=== PATIENT | male | born 1945 | race African-American/Black ===

== ENCOUNTER 2016-04-10 15:28 | Inpatient (IN) | payer OTHER ==
[2016-04-10] MEDS ORDERED: NS 1,000 ML IV ONE (16:08)
[2016-04-10] MEDS ORDERED: fentaNYL 100 MCG/2 ML INJ IV ONE (16:08)
[2016-04-10] MEDS ORDERED: ONDANSETRON 4 MG/2 ML VIAL IVP ONE (16:08)
[2016-04-10 16:32] LABS: % IMMATURE GRANULYOCYTES 0.5 % (0.0-1.1); ABSOLUTE IMMATURE GRANULOCYTES 0.07 10^3/uL (0.00-0.10); ADD DIFF? NO; ADD MORPH? NO; ADD SCAN? NO; ATYPICAL LYMPHOCYTE FLAG 10 (0-99); FRAGMENT RBC FLAG 0 (0-99); HEMOGLOBIN 15.8 g/dL (13.7-17.5); LEFT SHIFT FLG 0 (0-99); LIPEMIA HEMOLYSIS FLAG 90 (0-99); MEAN CELL HEMOGLOBIN 33.3 pg (27.9-34.1); MEAN CELL HEMOGLOBIN CONCENTR. 35.1 g/dL (32.4-36.7); MEAN CELL VOLUME 94.9 fL (81.5-99.8); MEAN PLATELET VOLUME 9.8 fL (8.7-11.7); PLATELET CLUMPS FLAG 10 (0-99); PLATELET COUNT 190 10^3/uL (150-400); RED BLOOD CELL COUNT 4.74 10^6/uL (4.40-6.38); RED CELL DISTRIBUTION WIDTH 13.3 % (11.5-15.2)
--- NOTE | 2016-04-10 16:38 | EDPHY ---
H & P Stated Complaint: L knee injury HPI/ROS: CHIEF COMPLAINT: Knee pain, leg pain HISTORY OF PRESENT ILLNESS: Walking out of his home yesterday when he slipped on the ice. He says his knee flexed and the lower leg went into a valgus stress. He noted sudden onset of pain on the distal femur or the proximal knee. It was moderate to severe pain. Unable to bear weight on it. He was unable to come to the emergency department as he did not have a ride. He is laid there home resting and elevating the leg. He has severe pain to the knee at this time. No numbness or tingling distally. No head or neck injury. No chest or back pain. No injury on the ipsilateral hip, ankle or foot. He has not tested he is having movement of any kind. It is too painful to move at all. Improved at rest. No other associated complaints or modifying factors. Has not had anything to eat since last night. The medical problems include chronic hepatitis-C and pancreatitis due to alcoholism. REVIEW OF SYSTEMS: Ten systems reviewed and are negative unless otherwise noted in the HPI EXAMINATION General Appearance: Alert, no distress Head: normocephalic, atraumatic . No bruising or hematoma or depressions no Burns sign. No raccoon eyes Eyes: Pupils equal and round, no conjunctival pallor or injection . No icterus ENT, Mouth: Mucous membranes moist. Uvula midline. No edema. Neck: Normal inspection . Range of motion intact. Respiratory: No dyspnea or retractions. no wheezing rhonchi or crackles.No distress Cardiovascular: Pulses normal throughout. Symmetric DP and PT pulses at 2+. Brisk cap refill Gastrointestinal: No distention . No tenderness. Neurological: A&O, sensory symmetric, strength symmetric Skin: Warm and dry, no rash . No lacerations or abrasions Extremities: significant edema and tenderness to palpation of the left knee. Unable to test range of motion secondary to pain and having artery the x-ray with fracture. Range of motion distal to the knee is intact. Sensory distal to the knee is intact. No evidence of compartment syndrome. Psychiatric: Mood and affect normal DIFFERENTIAL DIAGNOSES: Including but not limited to Fracture dislocation, sprain, strain MDM: 4:10 p.m. mechanical fall with significant fracture to the distal left femur, through the femoral condyles and into the articular surface. He is neurovascular intact distally. Orthopedics has been paged and awaiting their orders at this time. He has been NPO since last night. History significant for hepatitis-C, alcoholism and pancreatitis. 4:38 p.m. I have discussed the case with the on-call orthopedist Dr. Del Rosario. he informed me that he is unable to see the patient approximately 6:00 p.m. due to surgical responsibilities. He said that he will come evaluate the patient as soon as he can but a likely be 6:00 p.m.. They also informed that his plan will likely be to transfer to another facility as he does not perform this particular surgical intervention. The patient is resting comfortably at this time. Will be kept NPO. We obtained laboratory studies AP upright chest x-ray and will monitor until ortho evaluation 5:36 p.m. I have re-evaluated this patient. They remain hemodynamically stable and in no distress. No further complaints at this time. 6:30 p.m. I have re-evaluated this patient. They remain hemodynamically stable and in no distress. No further complaints at this time. Pain is tolerable at this time. We are still awaiting orthopedic consultation. 6:55pm Orthopedics (Dr. Del Rosario) repaged at this time. 7:25 p.m. he has been evaluated by Orthopedics. Dr. Del Rosario has evaluated and discussed with Dr. Nichols. Dr. Nichols has agreed to the procedure outpatient. He feels the patient is stable for discharge home given the nature of the injury. However the patient may be admitted should he be unable to go home. I have discussed this with the patient, and while I would like the patient to be admitted for his safety, the patient has declined. I discussed in detail the risks, benefits and alternatives of doing so. He is willing to assume all these risks. He is alert and oriented and capable of making this decision. On repeat examination at this time, he is neurovascular intact with no evidence of compartment syndrome. His pain is tolerable at this time. He will be discharged home with a straight leg immobilizer, crutches, follow up instructions, pain medication. He is instructed to return to the ER should his pain worsen, should he fall or should he change his mind regarding his comfort at home. 7:35 p.m. After being evaluated by the attending physician Dr. Dominguez, the patient has reconsidered and will consent to admission. He'll be admitted to Orthopedic service for definitive care. Plan for OR tomorrow afternoon or evening. 8:50 p.m. case discussed with orthopedic MICHAEL Leahy. They are requesting medicine consultation. I then contacted the hospitalist, Dr. Thomas will provide consultation. He is requesting an EKG in the emergency department. He be admitted in stable condition for definitive care tomorrow. ED Precautions: Worsening pain. Erythema, edema, cyanosis, pallor, paresthesia or anesthesia. SUPERVISION: Patient was evaluated in conjunction with the supervising physician. Please see their note for details. 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 FROM [place], HEPATITIS C - Social History Smoking Status: Light smoker Constitutional: Initial Vital Signs Temperature (C) 98.6 F 04/10/16 15:30 Heart Rate 132 H 04/10/16 15:30 Respiratory Rate 16 04/10/16 15:30 Blood Pressure 146/100 H 04/10/16 15:30 O2 Sat (%) 98 04/10/16 15:30 O2 Delivery Mode Room Air O2 (L/minute) 2 Allergies/Adverse Reactions: No Known Allergies Allergy (Unverified 05/29/14 08:46) Home Medications: Medication Instructions Recorded Ibuprofen [Motrin (*)] 200 mg PO DAILY PRN 04/10/16 Multivitamins [Multivitamin (*)] 1 each PO DAILY 04/10/16 Medical Decision Making - Data Points Laboratory Results: Laboratory Results 04/10/16 16:25 04/10/16 16:25 04/10/16 04/10/16 19:37 16:25 WBC 13.81 H 10^3/uL (3.80-9.50) RBC 4.74 10^6/uL (4.40-6.38) Hgb 15.8 g/dL (13.7-17.5) Hct 45.0 % (40.0-51.0) MCV 94.9 fL (81.5-99.8) MCH 33.3 pg (27.9-34.1) MCHC 35.1 g/dL (32.4-36.7) RDW 13.3 % (11.5-15.2) Plt Count 190 10^3/uL (150-400) MPV 9.8 fL (8.7-11.7) Neut % (Auto) 66.4 % (39.3-74.2) Lymph % (Auto) 24.8 % (15.0-45.0) [place] % (Auto) 8.0 % (4.5-13.0) Eos % (Auto) 0.0 L % (0.6-7.6) Baso % (Auto) 0.3 % (0.3-1.7) Nucleat RBC Rel Count 0.0 % (0.0-0.2) Absolute Neuts (auto) 9.18 H 10^3/uL (1.70-6.50) Absolute Lymphs (auto) 3.42 H 10^3/uL (1.00-3.00) Absolute Monos (auto) 1.10 H 10^3/uL (0.30-0.80) Absolute Eos (auto) 0.00 L 10^3/uL (0.03-0.40) Absolute Basos (auto) 0.04 10^3/uL (0.02-0.10) Absolute Nucleated RBC 0.00 10^3/uL (0-0.01) Immature Gran % 0.5 % (0.0-1.1) Immature Gran # 0.07 10^3/uL (0.00-0.10) PT 13.4 SEC (12.0-15.0) INR 1.03 (0.83-1.16) APTT 27.7 SEC (23.0-38.0) Sodium 139 mEq/L (134-144) Potassium 3.2 L mEq/L (3.5-5.2) Chloride 101 mEq/L (97-110) Carbon Dioxide 20 L mEq/l (22-31) Anion Gap 18 mEq/L (8-16) BUN 11 mg/dL (7-23) Creatinine 0.9 mg/dL (0.7-1.3) Estimated GFR > 60 Glucose 110 H mg/dL (70-100) Calcium 9.7 mg/dL (8.5-10.4) Total Bilirubin 1.8 H mg/dL (0.1-1.4) Conjugated Bilirubin 0.4 mg/dL (0.0-0.5) Unconjugated Bilirubin 1.4 H mg/dL (0.0-1.1) AST 42 IU/L (17-59) ALT 27 IU/L (21-72) Alkaline Phosphatase 97 IU/L (38-126) Total Protein 8.5 H g/dL (6.3-8.2) Albumin 3.9 g/dL (3.5-5.0) Lipase 31.0 IU/L (23-300) Urine Color YELLOW Urine Appearance CLEAR Urine pH 6.0 (5.0-7.5) Ur Specific [place] 1.008 (1.002-1.030) Urine Protein NEGATIVE (NEGATIVE) Urine Ketones NEGATIVE (NEGATIVE) Urine Blood 2+ H (NEGATIVE) Urine Nitrate NEGATIVE (NEGATIVE) Urine Bilirubin NEGATIVE (NEGATIVE) Urine Urobilinogen NEGATIVE EU (0.2-1.0) Ur Leukocyte Esterase NEGATIVE (NEGATIVE) Urine RBC 15-25 H /hpf (0-3) Urine WBC 1-3 /hpf (0-3) Ur Epithelial Cells NONE SEEN /lpf (NONE-1+) Urine Mucus TRACE /lpf (NONE-1+) Urine Glucose NEGATIVE (NEGATIVE) Patient ABO/Rh A POSITIVE Antibody Screen NEGATIVE Medications Given: Discontinued Medications Fentanyl (Sublimaze) 75 mcg IV EDNOW ONE Stop: 04/10/16 16:09 Last Admin: 04/10/16 16:43 Dose: 75 mcg Sodium Chloride (Ns) 1,000 mls @ 0 mls/hr IV ONCE ONE PRN Reason: Wide Open Stop: 04/10/16 16:09 Last Admin: 04/10/16 16:43 Dose: 1,000 mls Ondansetron HCl (Zofran) 4 mg IVP EDNOW ONE Stop: 04/10/16 16:09 Last Admin: 04/10/16 16:43 Dose: 4 mg Oxycodone/Acetaminophen (Percocet 5/325mg Prepack#4) 1 btl TAKEHOME EDNOW ONE Stop: 04/10/16 19:28 Last Admin: 04/10/16 19:54 Dose: Not Given Departure - Departure Disposition: [facility] Acute Clinical Impression: Chronic hepatitis Femur fracture, left Qualifiers: Qualifier Code: (S72.062A) Displaced articular fracture of head of left femur, initial encounter for closed fracture Condition: Good
[2016-04-10 16:56] LABS: ALANINE AMINOTRANSFERASE 27 IU/L (21-72); ALBUMIN 3.9 g/dL (3.5-5.0); ALKALINE PHOSPHATASE 97 IU/L (38-126); ANION GAP 18 mEq/L (8-16); ASPARTATE AMINOTRANSFERASE 42 IU/L (17-59); BILIRUBIN,TOTAL 1.8 mg/dL (0.1-1.4); BILIRUBIN-CONJUGATED 0.4 mg/dL (0.0-0.5); BILIRUBIN-UNCONJUGATED 1.4 mg/dL (0.0-1.1); CALCIUM 9.7 mg/dL (8.5-10.4); CARBON DIOXIDE 20 mEq/l (22-31); CHLORIDE 101 mEq/L (97-110); CREATININE 0.9 mg/dL (0.7-1.3); GLOMERULAR FILTRATION RATE > 60; GLUCOSE 110 mg/dL (70-100); POTASSIUM 3.2 mEq/L (3.5-5.2); SODIUM 139 mEq/L (134-144); TOTAL PROTEIN 8.5 g/dL (6.3-8.2)
[2016-04-10 17:09] LABS: APTT 27.7 SEC (23.0-38.0); INR 1.03 (0.83-1.16); PROTIME(PATIENT) 13.4 SEC (12.0-15.0)
--- NOTE | 2016-04-10 17:14 | DX ---
Knee 4 or More Views Left History: Trauma. Pain. Findings: An obliquely oriented moderately displaced fracture extends from the medial aspect of the d istal left femur just above the medial femoral condyle inferiorly in vertical orientation to the inte rcondylar space, where step-off is demonstrated. On the lateral radiograph, a horizontal lucency courses through the mid patella, potentially represen ting a nondisplaced fracture. No proximal tibial or fibular fracture identified. Impression: 1. Displaced intercondylar fracture, distal left femur. 2. Equivocal horizontal nondisplaced fracture mid patella.
--- NOTE | 2016-04-10 17:16 | DX ---
Portable AP chest. April 10, 2016At 1632 History: Preoperative evaluation. Comparison Study: May 30, 2014. Findings: Pleural and parenchymal fibrosis is identified in the lung apices bilaterally. Heart size is normal. No infiltrate or pleural effusion. No rib fracture identified. Impression: Biapical pleural and parenchymal fibrosis. No acute abnormality.
[2016-04-10] MEDS ORDERED: OXYCODONE/APAP 5/325MG PREPACK#4 BTL TAKEHOME ONE (19:27)
[2016-04-10 19:48] LABS: COLOR YELLOW; LEUKOCYTE ESTERASE,URINE NEGATIVE (NEGATIVE); NITRITE,URINE NEGATIVE (NEGATIVE)
[2016-04-10 20:00] LABS: MUCUS TRACE /lpf (NONE-1+); RBC,URINE 15-25 /hpf (0-3)
[2016-04-10] MEDS ORDERED: ONDANSETRON 4 MG/2 ML VIAL IVP PRN (20:53)
--- NOTE | 2016-04-10 21:09 | CPEKG ---
Heart Rate: 90 RR Interval: 667 P-R Interval: 144 QRSD Interval: 118 QT Interval: 380 QTC Interval: 465 P [place]: 74 QRS [place]: -70 T Wave [place]: 50 EKG Severity - ABNORMAL ECG - EKG Impression: SINUS RHYTHM EKG Impression: MULTIPLE ATRIAL PREMATURE COMPLEXES EKG Impression: INCOMPLETE RBBB AND LAFB Electronically Signed By: Tomasz Best 12-Apr-2016 19:34:24
[2016-04-10] MEDS ORDERED: HYDROmorphONE/DILAUDID 1 MG/ML SYR IVP ONE (21:19)
[2016-04-10] MEDS: OXYCODONE/APAP 5/325 TAB PO PRN (21:39)
[2016-04-10] MEDS: GABAPENTIN 100 MG CAP PO SCH (21:40)
--- NOTE | 2016-04-10 22:02 | CT ---
CT of the left knee, without contrast. History: Trauma. Pain. Technique: Volumetric axial CT images of the left knee are obtained, and reformatted in sagittal and coronal planes. Dose reduction techniques were utilized. Findings: There is a vertically oriented moderately displaced fracture coursing through the distal le ft femur, extending from just above the medial femoral condyle to cross the midline and enter the kne e joint just lateral to the intercondylar notch. Fracture fragments are by 15 mm. Associate d hemarthrosis. Additionally, there is a horizontally oriented incomplete fracture through the latera l aspect of the patella, without displacement. No other fracture identified. Impression: 1. Moderately displaced vertical fracture through the distal left femur. 2. Horizontal incomplete fracture through the lateral aspect of the patella.
--- NOTE | 2016-04-10 22:54 | GCON ---
[f rep ] CONSULTATION [facility] MEDICINE CONSULTATION DATE OF CONSULTATION: 04/10/2016 HISTORY OF PRESENT ILLNESS: The patient is a pleasant 70-year-old gentleman with a history of pancre atitis and untreated hepatitis C, who presents with a fall that occurred yesterday. He slipped on ic e and had a sudden onset of pain in the distal femur/proximal knee. Felsrmwu-ey-lieued pain. He is unable to bear weight. He laid home resting his leg yesterday and came to the Emergency Department t judd. He denies antecedent chest pain, shortness of breath, nausea, vomiting, diarrhea. Does have a n episode of a couple of syncopal episodes in the past year for which he did not seek care. He is ab le to achieve greater than 4 mets at baseline without chest symptoms such as shortness of breath or a nginal type symptoms. He denies heart failure symptoms such as PND, orthopnea, or lower extremity edema. He denies recent fevers, chills, cough, nausea, vomiting, diarrhea. He was admitted here with pancreatitis a couple of years ago. He has not had recurrent pancreatitis. He says he has cut down on his alcohol use. The patient complains of neuropathic symptoms in his feet such as feelings of deadness and tingling. He does not have diabetes. REVIEW OF SYSTEMS: A complete 10-point review of systems was conducted and negative, except as noted in the HPI. PAST MEDICAL HISTORY: 1. Pancreatitis. 2. Hepatitis C. 3. Heavy alcohol use which appears to be better. He has no history of withdrawal. 4. Chronic back pain. SOCIAL HISTORY: . Lives alone in an apartment. No tobacco. Marijuana and alcohol daily. FAMILY HISTORY: His father when he was a child of unknown causes. His mother had CHF. ALLERGIES: He has no known drug allergies. MEDICATIONS: None. PHYSICAL EXAM: VITAL SIGNS: Temperature 37.4, blood pressure 146/100, pulse 132, breathing 16 times a minute, 98% on room air. GENERAL: In no acute distress. HEENT: Sclerae are anicteric. Orophar ynx is clear. Mucous membranes are moist. NECK: Supple without lymphadenopathy or JVD. LUNGS: Cl ear to auscultation bilaterally. HEART: S1, S2 without systolic murmur. ABDOMEN: Soft, nontender, nondistended. EXTREMITIES: Lower extremities without edema. His left leg is very tender. LABORATORY STUDIES: EKG interpreted by me shows sinus at 90 with left axis deviation. There is an i ncomplete right bundle branch block and a left anterior fascicular block. There is no prior for comp camson. There are no ischemic changes. Chest x-ray shows no acute cardiopulmonary disease. Knee x-ray shows an intercondylar distal femur fracture. I discussed the case with Thomas Jalloh PA-C in the Emergency Department. ASSESSMENT AND PLAN: This is a 70-year-old gentleman with a femur fracture. 1. Preoperative cardiac evaluation: The patient can achieve greater than 4 mets at baseline without symptoms. He has an abnormal EKG, but it is likely community health representative of underlying conduction disease as opposed to ischemia or prior infarct. At this point in time, it is appropriate to send the patien t to the operating room without further workup or intervention. 2. Abnormal EKG. He has no prior for comparison. Will follow. 3. Neuropathic pain. I will go ahead and start the patient on Neurontin at a low dose of 100 t.i.d. This can be uptitrated during his hospitalization. 4. Pain. He has had some pain medication orders written by Orthopedic Surgery. We will continue th at. I will give him a onetime dose of Dilaudid down here in the Emergency Department as he is still complaining of pain. 5. Prophylaxis. Pharmacologic prophylaxis is indicated. I will not write for it now. However, he is high-risk given his distal femur fracture. I would recommend pharmacologic prophylaxis starting o n postoperative day #1. 6. History of alcohol use. Patient has been hospitalized previously without symptoms of withdrawal. Sounds like he is drinking less. Will follow. Certainly, if he becomes tachycardic and/or hyperte nsive and/or confused, then it would be worth addressing alcohol withdrawal. DISPOSITION: Inpatient status. Thank you for this consultation. [facility] will follow with you. /[id number]/MODL
[2016-04-10] MEDS ORDERED: POTASSIUM Cl (KCl) 20 MEQ in 1/2 NS 1,000 ML IV SCH (23:00)
[2016-04-11] MEDS: OXYCODONE/APAP 5/325 TAB PO PRN (00:50)
[2016-04-11] MEDS: GABAPENTIN 100 MG CAP PO SCH ×3 (09:08→23:32)
[2016-04-11] MEDS: HYDROmorphONE/DILAUDID 1 MG/ML SYR IVP PRN ×2 (09:18→15:53)
--- NOTE | 2016-04-11 14:06 | HOSPPROG ---
Hospitalist Progress Note Assessment/Plan: Patient is a 70-year-old male who had a fall that occurred prior to his admission. He slipped on the ice and had sudden onset of pain in the distal femur/proximal knee area. A knee x-ray was performed which showed a intercondylar distal femur fracture. Today is my 1st encounter with the patient. Chart reviewed. #. Intercondylar distal femur fracture * surgery today * has brace in place #. Abnormal ECG * has no chest pain #. Underweight with a BMI of 17.6 #. Neuropathic pain * started on gabapentin * no c/o pain #. Hx of alcohol use and nicotine dependence * denies use #. DVT prophylaxis: will need lmwh initiated #.Plan: labs in a.m. Subjective: Zi said he isn't have much pain. Objective: Vital Signs Temp Pulse Resp BP Pulse Ox 36.4 C 82 15 121/77 H 98 04/11/16 11:09 04/11/16 11:09 04/11/16 11:09 04/11/16 11:09 04/11/16 11:09 04/10/16 04/11/16 04/12/16 05:59 05:59 05:59 Intake Total 550 Output Total 100 Balance 450 PT 13.4 SEC (12.0-15.0) 04/10/16 16:25 INR 1.03 (0.83-1.16) 04/10/16 16:25 - Physical Exam Constitutional: not in pain, chronically ill appearing, cachectic Eyes: PERRL, anicteric sclera Ears, Nose, Mouth, Throat: hearing normal Cardiovascular: regular rate and rhythym, no murmur, rub, or gallop Respiratory: no respiratory distress Gastrointestinal: normoactive bowel sounds, soft, non-tender abdomen Skin: warm Musculoskeletal: other (left leg in brace) Neurologic: AAOx3 Psychiatric: interacting appropriately ICD10 Worksheet Patient Problems: Problems Problem Status Diagnosed Chronic hepatitis Acute Femur fracture, left Acute Pancreatitis Acute
[2016-04-11] MEDS ORDERED: BISACODYL 10 MG SUPP PR PRN (17:28)
[2016-04-11] MEDS ORDERED: LACTULOSE 20 GM/30 ML UDCUP PO PRN (17:28)
[2016-04-11] MEDS ORDERED: MAGNESIUM HYDROXIDE 30 ML UDCUP PO PRN (17:28)
[2016-04-11] MEDS ORDERED: BUPIVACAINE 0.5% 30 ML SDV ONE (19:08)
[2016-04-11] MEDS ORDERED: MIDAZOLAM 2 MG/2 ML VIAL ONE (19:14)
[2016-04-11] MEDS ORDERED: fentaNYL 100 MCG/2 ML INJ ONE ×3 (19:21→22:15)
[2016-04-11] MEDS ORDERED: PROPOFOL 200 MG/20 ML VIAL ONE ×2 (19:21→20:17)
[2016-04-11] MEDS ORDERED: METOCLOPRAMIDE 10 MG/2 ML VIAL ONE (19:22)
[2016-04-11] MEDS ORDERED: ONDANSETRON 4 MG/2 ML VIAL ONE (19:22)
[2016-04-11] MEDS ORDERED: LIDOCAINE 2% JELLY 5 ML TUBE ONE (19:22)
[2016-04-11] MEDS ORDERED: METOPROLOL TARTRATE 5 MG/5 ML INJ ONE ×2 (20:35→21:23)
--- NOTE | 2016-04-11 20:59 | DX ---
Fluoroscopy: 15.3 seconds, 0.97 mGy, of intraoperative fluoroscopy was utilized by Dr. Nichols for ORIF of the dist al left femur. 2 digital images show a plate and multiple screws transfixing the distal left femur.
[2016-04-11] MEDS ORDERED: hydrALAZINE 20 MG/ML VIAL ONE (21:13)
[2016-04-11] MEDS ORDERED: HYDROmorphONE/DILAUDID 1 MG/ML SYR ONE (21:17)
[2016-04-11] MEDS ORDERED: morphINE PCA 30 MG/30 ML PCA IV PRN (21:17)
[2016-04-11] MEDS ORDERED: NALOXONE HCL 0.4 MG/ML INJ IVP PRN (21:17)
--- NOTE | 2016-04-11 21:27 | POSTOPPROG ---
Post Op Note Date of Operation: 04/11/16 Surgeon: Jostin Nichols Anesthesia: GET(General Endotracheal) Pre-op Diagnosis: L distal femur fracture Post-op Diagnosis: same Procedure: orif l distal femur fx Inf/Abcess present in the surg proc area at time of surgery?: No EBL: Minimal
[2016-04-11] MEDS ORDERED: D5W 1/2 NS W/ 20 KCl/L 1,000 ML IV SCH (21:30)
[2016-04-11] MEDS: SENNOSIDES/DOCUSATE SODIUM TAB PO SCH (23:32)
--- NOTE | 2016-04-12 00:09 | GCON ---
[f rep st] CONSULTATION ORTHOPEDIC CONSULTATION REASON FOR CONSULTATION: Left knee pain. HISTORY OF PRESENT ILLNESS: Patient is a 70-year-old, who sustained a fall while walking on the ice resulting in left knee pain. This happened the day prior to admission. He is having increasing pain with difficulty ambulating secondary to his pain. PAST MEDICAL HISTORY: Unremarkable. MEDICATIONS: He takes no medicine. ALLERGIES: Lists no drug allergies. SOCIAL HISTORY: Positive for cigarette smoking of approximately 3 cigarettes per day. PHYSICAL EXAMINATION: GENERAL: He is alert and oriented x3, in mild distress secondary to his left knee pain. HEAD: Normocephalic. Pupils equal, round, reactive to light. NECK: Supple. No JVD or lymphadenopathy. CHEST: Clear to auscultation. No rhonchi or crackles. HEART: Regular rate and rhythm. No murmurs, gallops. ABDOMEN: Soft, nontender, nondistended. GENITAL, RECTAL, AND BREAST: Exams were deferred. EXTREMITIES: Swelling with probable effusion in his left knee. He had focal tenderness both medially and laterally in his knee. His distal neurovascular exam was intact. IMAGING: Radiographs showed evidence of a medial femoral condyle fracture. ASSESSMENT: Intra-articular distal femur fracture. PLAN: It was recommended the patient undergo operative treatment consisting of open reduction, inter nal fixation. /[id number]/MODL
--- NOTE | 2016-04-12 01:14 | GOP ---
[f rep st] OPERATIVE REPORT DATE OF OPERATION: 04/11/2016 SURGEON: Jostin Nichols MD ANESTHESIA: General. PREOPERATIVE DIAGNOSIS: Intercondylar left distal femur fracture. POSTOPERATIVE DIAGNOSIS: Intercondylar left distal femur fracture. PROCEDURE PERFORMED: 1. Open reduction, internal fixation, left intercondylar distal femur fracture. 2. Intraoperative use of fluoroscopy. FINDINGS: ESTIMATED BLOOD LOSS: Minimal. INDICATIONS: The patient is a 70-year-old who fell on the ice 2 days prior to surgery, resulting in knee pain. Clinically and radiographically, he was noted to have an intercondylar distal femur fract ure. Based on the displaced nature of the injury, it was recommended that operative treatment consis ting of open reduction, internal fixation be pursued. The patient acknowledged he understood the pot ential risks, including but not limited to bleeding, infection, neurovascular damage including loss o f limb or limb function, malunion, nonunion, need for hardware removal, pain or functional limitation s despite operative treatment, and anesthetic risks. He acknowledged he understood the potential ris ks, planned procedure and postoperative plan well, had all questions answered prior to surgery. He g ave his consent for the operative procedure. DESCRIPTION OF PROCEDURE: Patient was brought to the operating room after IV antibiotics were admini stered. He was placed in a supine position where general anesthetic was administered. A tourniquet was placed on his left thigh. His left lower extremity was prepped and draped in standard sterile fa shion. Initial limited lateral approach to the distal femur was utilized to aid in the reduction of the fracture. A medial approach was then utilized. Skin and subcutaneous tissue were sharply incise d. Transmuscular dissection was performed through the vastus medialis, exposing the medial and femor al condyles. The fracture plane was identified. Utilizing a 2-point reduction clamp, both on the fr acture medially and through the lateral incision, the fracture was reduced. A 6-hole semitubular aidee te was malleted flat and contoured to fit the distal femur, under-contouring the plate to allow compr ession at the fracture site. Just proximal to the fracture plane, a 4.5 mm bicortical screw was plac ed in a medial-lateral direction through the plate. A 4.5 mm lag screw and a 6.5 mm screw with 16 mm threads were additionally placed through the plate for the compression of the fracture. A final 4.5 mm bicortical screw was placed in the most proximal hole in the plate. Fluoroscopic views confirmed favorable reduction and hardware placement. Attention was directed towards closure. Deep fascia was closed with 2-0 Vicryl suture in interrupted fashion. Subcutaneous tissue was closed with 3-0 Vicryl suture in interrupted fashion. Skin was closed with skin jeromy. The wounds were dressed with sterile Adaptic, 4 x 4, Kerlix and an Russell wrap. The patient was placed in a knee immobi lizer. The patient was taken to the recovery room, extubated, in stable condition postoperatively. All sponge, needle, and instrument counts were reported as being correct. DRAINS: None. COMPLICATIONS: None. PLAN: The patient will be admitted for overnight observation. He will be weightbearing as tolerated on his operative extremity. /[id number]/MODL
[2016-04-12 05:08] LABS: % IMMATURE GRANULYOCYTES 0.5 % (0.0-1.1); ABSOLUTE IMMATURE GRANULOCYTES 0.07 10^3/uL (0.00-0.10); ADD DIFF? NO; ADD MORPH? NO; ADD SCAN? NO; ATYPICAL LYMPHOCYTE FLAG 10 (0-99); FRAGMENT RBC FLAG 0 (0-99); HEMATOCRIT 36.7 % (40.0-51.0); HEMOGLOBIN 13.1 g/dL (13.7-17.5); LEFT SHIFT FLG 0 (0-99); LIPEMIA HEMOLYSIS FLAG 90 (0-99); MEAN CELL HEMOGLOBIN 34.2 pg (27.9-34.1); MEAN CELL HEMOGLOBIN CONCENTR. 35.7 g/dL (32.4-36.7); MEAN CELL VOLUME 95.8 fL (81.5-99.8); MEAN PLATELET VOLUME 9.8 fL (8.7-11.7); PLATELET CLUMPS FLAG 0 (0-99); PLATELET COUNT 147 10^3/uL (150-400); RED BLOOD CELL COUNT 3.83 10^6/uL (4.40-6.38); RED CELL DISTRIBUTION WIDTH 13.1 % (11.5-15.2)
[2016-04-12 05:22] LABS: ANION GAP 7 mEq/L (8-16); CALCIUM 8.6 mg/dL (8.5-10.4); CARBON DIOXIDE 24 mEq/l (22-31); CHLORIDE 99 mEq/L (97-110); CREATININE 0.7 mg/dL (0.7-1.3); GLOMERULAR FILTRATION RATE > 60; GLUCOSE 105 mg/dL (70-100); SODIUM 130 mEq/L (134-144)
[2016-04-12] MEDS: ENOXAPARIN 40 MG/0.4 ML SYR SC SCH (07:55)
[2016-04-12] MEDS: POLYETHYLENE GLYCOL 3350 17 GM PKT PO SCH (07:57)
[2016-04-12] MEDS: SENNOSIDES/DOCUSATE SODIUM TAB PO SCH ×2 (07:57→21:19)
[2016-04-12] MEDS: OXYCODONE/APAP 5/325 TAB PO PRN ×2 (07:58→14:36)
[2016-04-12] MEDS: GABAPENTIN 100 MG CAP PO SCH ×3 (08:04→21:19)
[2016-04-12] MEDS ORDERED: NS 250 ML IV ONE (08:39)
--- NOTE | 2016-04-12 08:39 | HOSPPROG ---
Hospitalist Progress Note Assessment/Plan: Patient is a 70-year-old male who had a fall that occurred prior to his admission. He slipped on the ice and had sudden onset of pain in the distal femur/proximal knee area. A knee x-ray was performed which showed a intercondylar distal femur fracture. #. Intercondylar distal femur fracture * POD #1 ORIF * has brace in place * pain is well managed #. Tachycardia w/hypotension * fluid bolus #. Abnormal ECG * has no chest pain #. Hyponatremia * will follow #. Underweight with a BMI of 17.6 #. Neuropathic pain * started on gabapentin * no c/o pain #. Hx of alcohol use and nicotine dependence * denies use #. DVT prophylaxis: LMWH #.Plan: get repeat labs in a.m./ give fluid bolus and then normal saline. [facility] need [facility] Subjective: Zi had no complaints/ asymptomatic of low bp. Objective: Vital Signs Temp Pulse Resp BP Pulse Ox 37.1 C 120 H 15 98/73 L 99 04/12/16 07:47 04/12/16 07:47 04/12/16 07:47 04/12/16 07:47 04/12/16 07:47 Laboratory Results 04/12/16 04:55 04/12/16 04:55 04/11/16 04/12/16 04/13/16 05:59 05:59 05:59 Intake Total 550 1290 Output Total 100 955 Balance 450 335 PT 13.4 SEC (12.0-15.0) 04/10/16 16:25 INR 1.03 (0.83-1.16) 04/10/16 16:25 - Physical Exam Constitutional: no apparent distress, not in pain, cachectic Eyes: PERRL Ears, Nose, Mouth, Throat: hearing normal Cardiovascular: regular rate and rhythym, tachycardia Respiratory: no respiratory distress Gastrointestinal: normoactive bowel sounds Skin: warm Musculoskeletal: generalized weakness, other (left leg in brace) Neurologic: AAOx3 Psychiatric: interacting appropriately, not anxious ICD10 Worksheet Patient Problems: Problems Problem Status Diagnosed Chronic hepatitis Acute Femur fracture, left Acute Pancreatitis Acute
[2016-04-12] MEDS ORDERED: PROTOCOL POTASSIUM 1 DOSE MISC PRN (08:40)
[2016-04-12] MEDS ORDERED: NS 1,000 ML IV SCH (08:45)
--- NOTE | 2016-04-12 14:20 | SOAPPROG ---
SOAP Progress Note Assessment/Plan: Assessment: S/P ORIF L Distal femur fx Pain improved Up with PT Mandi diet Dressing intact/ No D/C Distal NVI Plan: OOB/PT Probable D/C tomorrow 04/12/16 14:19 Objective: Vital Signs Temp Pulse Resp BP Pulse Ox 37.5 C 104 H 14 113/69 97 04/12/16 12:26 04/12/16 12:26 04/12/16 12:26 04/12/16 12:26 04/12/16 12:26 Laboratory Results 04/12/16 04:55 04/12/16 04:55 04/11/16 04/12/16 04/13/16 05:59 05:59 05:59 Intake Total 550 1290 Output Total 100 955 Balance 450 335 PT 13.4 SEC (12.0-15.0) 04/10/16 16:25 INR 1.03 (0.83-1.16) 04/10/16 16:25 ICD10 Worksheet Patient Problems: Problems Problem Status Diagnosed Chronic hepatitis Acute Femur fracture, left Acute Pancreatitis Acute
[2016-04-12] MEDS: oxyCODONE IR 5 MG TAB PO PRN ×2 (18:13→21:18)
[2016-04-12 18:46] LABS: POTASSIUM 3.7 mEq/L (3.5-5.2)
[2016-04-12] MEDS ORDERED: POTASSIUM CL 10 MEQ TAB PO ONE (23:04)
[2016-04-13 05:36] LABS: % IMMATURE GRANULYOCYTES 0.5 % (0.0-1.1); ABSOLUTE IMMATURE GRANULOCYTES 0.06 10^3/uL (0.00-0.10); ADD DIFF? NO; ADD MORPH? NO; ADD SCAN? NO; ATYPICAL LYMPHOCYTE FLAG 10 (0-99); FRAGMENT RBC FLAG 0 (0-99); HEMATOCRIT 32.5 % (40.0-51.0); HEMOGLOBIN 11.5 g/dL (13.7-17.5); LEFT SHIFT FLG 0 (0-99); LIPEMIA HEMOLYSIS FLAG 90 (0-99); MEAN CELL HEMOGLOBIN CONCENTR. 35.4 g/dL (32.4-36.7); MEAN CELL VOLUME 96.2 fL (81.5-99.8); MEAN PLATELET VOLUME 10.1 fL (8.7-11.7); PLATELET CLUMPS FLAG 30 (0-99); PLATELET COUNT 148 10^3/uL (150-400); RED BLOOD CELL COUNT 3.38 10^6/uL (4.40-6.38); RED CELL DISTRIBUTION WIDTH 12.7 % (11.5-15.2)
[2016-04-13 06:01] LABS: ANION GAP 5 mEq/L (8-16); CALCIUM 8.5 mg/dL (8.5-10.4); CARBON DIOXIDE 24 mEq/l (22-31); CHLORIDE 101 mEq/L (97-110); CREATININE 0.6 mg/dL (0.7-1.3); GLOMERULAR FILTRATION RATE > 60; GLUCOSE 80 mg/dL (70-100); POTASSIUM 3.9 mEq/L (3.5-5.2); SODIUM 130 mEq/L (134-144)
[2016-04-13] MEDS: oxyCODONE IR 5 MG TAB PO PRN ×3 (06:30→20:42)
[2016-04-13] MEDS ORDERED: METOPROLOL TARTRATE 25 MG TAB PO ONE (06:30)
[2016-04-13] MEDS ORDERED: POTASSIUM CL 10 MEQ TAB PO ONE (08:11)
[2016-04-13] MEDS: GABAPENTIN 100 MG CAP PO SCH ×3 (08:32→20:43)
[2016-04-13] MEDS: SENNOSIDES/DOCUSATE SODIUM TAB PO SCH ×2 (08:32→20:42)
[2016-04-13] MEDS: ENOXAPARIN 40 MG/0.4 ML SYR SC SCH (08:32)
[2016-04-13] MEDS: POLYETHYLENE GLYCOL 3350 17 GM PKT PO SCH (08:35)
--- NOTE | 2016-04-13 15:56 | HOSPPROG ---
Hospitalist Progress Note Assessment/Plan: Patient is a 70-year-old male who had a fall that occurred prior to his admission. He slipped on the ice and had sudden onset of pain in the distal femur/proximal knee area. A knee x-ray was performed which showed a intercondylar distal femur fracture. #. Intercondylar distal femur fracture * POD #2 ORIF * has brace in place * pain is well managed #. Tachycardia w/hypotension * fluid bolus yesterday/ hypotension resolved/ still intermittent tachycardic #. Abnormal ECG * has no chest pain #. Hyponatremia * will follow #. Underweight with a BMI of 17.6 #. Neuropathic pain * started on gabapentin * no c/o pain #. Hx of alcohol use and nicotine dependence * admits to 2 shot of Anthony Barakat in the evening/ may be etiology of tachycardia * will order vodka with dinner #. DVT prophylaxis: LMWH #.Plan: Patient stating there is no way he will go to a nursing home facility. I spoke with the patient's daughter who is at the bedside. Her brother will be staying with him for the 1st few days. And home care will be ordered. I am concerned that he does drink alcohol and very concerned about him falling. Subjective: Patient states that his pain is well controlled. Objective: Vital Signs Temp Pulse Resp BP Pulse Ox 36.8 C 85 17 152/87 H 98 04/13/16 08:22 04/13/16 08:22 04/13/16 08:22 04/13/16 08:22 04/13/16 08:22 Laboratory Results 04/13/16 04:50 04/13/16 04:50 04/12/16 04/13/16 04/14/16 05:59 05:59 05:59 Intake Total 1290 1922 Output Total 955 325 300 Balance 335 1597 -300 PT 13.4 SEC (12.0-15.0) 04/10/16 16:25 INR 1.03 (0.83-1.16) 04/10/16 16:25 - Physical Exam Constitutional: chronically ill appearing, cachectic Ears, Nose, Mouth, Throat: poor dentition Cardiovascular: regular rate and rhythym, tachycardia Respiratory: no respiratory distress, no rales or rhonchi Gastrointestinal: normoactive bowel sounds, soft, non-tender abdomen Skin: warm Musculoskeletal: other ( left leg in brace) Neurologic: AAOx3 Psychiatric: interacting appropriately, not anxious, not encephalopathic ICD10 Worksheet Patient Problems: Problems Problem Status Diagnosed Chronic hepatitis Acute Femur fracture, left Acute Pancreatitis Acute
[2016-04-13] MEDS: VODKA 50 ML BOTTLE PO SCH (18:05)
[2016-04-13 19:04] LABS: POTASSIUM 3.8 mEq/L (3.5-5.2)
[2016-04-14] MEDS ORDERED: POTASSIUM CL 10 MEQ TAB PO ONE ×2 (00:14→19:30)
[2016-04-14 05:51] LABS: % IMMATURE GRANULYOCYTES 0.5 % (0.0-1.1); ABSOLUTE IMMATURE GRANULOCYTES 0.06 10^3/uL (0.00-0.10); ADD DIFF? NO; ADD MORPH? NO; ADD SCAN? NO; ATYPICAL LYMPHOCYTE FLAG 30 (0-99); FRAGMENT RBC FLAG 0 (0-99); HEMATOCRIT 30.3 % (40.0-51.0); LEFT SHIFT FLG 0 (0-99); LIPEMIA HEMOLYSIS FLAG 90 (0-99); MEAN CELL HEMOGLOBIN 34.6 pg (27.9-34.1); MEAN CELL HEMOGLOBIN CONCENTR. 36.3 g/dL (32.4-36.7); MEAN CELL VOLUME 95.3 fL (81.5-99.8); MEAN PLATELET VOLUME 10.4 fL (8.7-11.7); PLATELET CLUMPS FLAG 0 (0-99); PLATELET COUNT 195 10^3/uL (150-400); RED BLOOD CELL COUNT 3.18 10^6/uL (4.40-6.38); RED CELL DISTRIBUTION WIDTH 12.3 % (11.5-15.2)
[2016-04-14 06:14] LABS: ANION GAP 7 mEq/L (8-16); CALCIUM 8.8 mg/dL (8.5-10.4); CARBON DIOXIDE 23 mEq/l (22-31); CHLORIDE 98 mEq/L (97-110); CREATININE 0.7 mg/dL (0.7-1.3); GLOMERULAR FILTRATION RATE > 60; GLUCOSE 79 mg/dL (70-100); POTASSIUM 4.2 mEq/L (3.5-5.2); SODIUM 128 mEq/L (134-144)
[2016-04-14] MEDS: SENNOSIDES/DOCUSATE SODIUM TAB PO SCH ×2 (08:08→20:15)
[2016-04-14] MEDS: GABAPENTIN 100 MG CAP PO SCH ×3 (08:08→20:11)
[2016-04-14] MEDS: ENOXAPARIN 40 MG/0.4 ML SYR SC SCH (08:08)
[2016-04-14] MEDS: oxyCODONE IR 5 MG TAB PO PRN ×3 (08:08→20:11)
[2016-04-14] MEDS: POLYETHYLENE GLYCOL 3350 17 GM PKT PO SCH (08:10)
--- NOTE | 2016-04-14 08:33 | SOAPPROG ---
SOANANTH Progress Note Assessment/Plan: Assessment: S/P ORIF L Distal femur fx Pain improved Up with PT Mandi diet Dressing intact/ No D/C Distal NVI Plan: OOB/PT Probable D/C tomorrow 04/12/16 14:19 04/14/16 08:31 Improved with PT Pain tolerable Will D/C home with home care Objective: Vital Signs Temp Pulse Resp BP Pulse Ox 36.7 C 103 H 16 163/96 H 100 04/14/16 07:18 04/14/16 07:18 04/14/16 07:18 04/14/16 07:18 04/14/16 07:18 Laboratory Results 04/14/16 04:30 04/14/16 04:30 04/13/16 04/14/16 04/15/16 05:59 05:59 05:59 Intake Total 1922 Output Total 325 900 Balance 1597 -900 PT 13.4 SEC (12.0-15.0) 04/10/16 16:25 INR 1.03 (0.83-1.16) 04/10/16 16:25 ICD10 Worksheet Patient Problems: Problems Problem Status Diagnosed Chronic hepatitis Acute Femur fracture, left Acute Pancreatitis Acute
--- NOTE | 2016-04-14 08:35 | PDIAF ---
- Diagnosis Code Status: Full Code - Medication Management Discharge Medications: Medications to Continue on Transfer Multivitamins [Multivitamin (*)] 1 each PO DAILY 04/10/16 [Last Taken Unknown] Discharge Medications: Refer to the Discharge Home Medication list for PRN reason. - Orders Services needed: Physical Therapy Diet Recommendation: no restrictions on diet Wound Care Instructions: Keep dressing clean, dry, intact Sutures/[place] Site: Left knee Activity/Weight Bearing Restrictions: Weight bearing as tolerated in brace - Follow Up Care Current Providers and Referrals: Patient,NotPresent [Unknown] - As per Instructions Jostin Nichols MD [Medical Doctor] -
--- NOTE | 2016-04-14 11:02 | HOSPPROG ---
Hospitalist Progress Note Assessment/Plan: Patient is a 70-year-old male who had a fall that occurred prior to his admission. He slipped on the ice and had sudden onset of pain in the distal femur/proximal knee area. A knee x-ray was performed which showed a intercondylar distal femur fracture. #. Intercondylar distal femur fracture * POD #3 ORIF * has brace in place * pain is well managed #. Tachycardia w/hypotension * fluid bolus yesterday/ hypotension resolved/ still intermittent tachycardic ( better) #. Abnormal ECG * has no chest pain #. Hyponatremia * lower today * will check urine studies #. Underweight with a BMI of 17.6 #. Neuropathic pain * started on gabapentin * no c/o pain #. Hx of alcohol use and nicotine dependence/suspect he is withdrawing * admits to 2 shot of Anthony Barakat in the evening/ may be etiology of tachycardia * vodka and prn Librium #. DVT prophylaxis: LMWH #.Plan: dc by ortho/ would encourage him to stay one more night due to low Na , but doubt he will/ home care ordered. CM following Subjective: Zi wants to go home today/ says he has no significant pain. Objective: Vital Signs Temp Pulse Resp BP Pulse Ox 36.7 C 103 H 16 163/96 H 100 04/14/16 07:18 04/14/16 07:18 04/14/16 07:18 04/14/16 07:18 04/14/16 07:18 Laboratory Results 04/14/16 04:30 04/14/16 04:30 04/13/16 04/14/16 04/15/16 05:59 05:59 05:59 Intake Total 1922 Output Total 325 900 Balance 1597 -900 PT 13.4 SEC (12.0-15.0) 04/10/16 16:25 INR 1.03 (0.83-1.16) 04/10/16 16:25 - Physical Exam Constitutional: chronically ill appearing, cachectic Eyes: PERRL Ears, Nose, Mouth, Throat: poor dentition (missing teeth) Cardiovascular: regular rate and rhythym Respiratory: no respiratory distress Gastrointestinal: normoactive bowel sounds Skin: warm Musculoskeletal: other (left leg in brace) Neurologic: AAOx3 Psychiatric: interacting appropriately, anxious ICD10 Worksheet Patient Problems: Problems Problem Status Diagnosed Chronic hepatitis Acute Femur fracture, left Acute Pancreatitis Acute
--- NOTE | 2016-04-14 12:29 | PDIAF ---
- Diagnosis Diagnosis: femur fracture Code Status: Full Code - Medication Management Discharge Medications: Medications to Continue on Transfer Multivitamins [Multivitamin (*)] 1 each PO DAILY 04/10/16 [Last Taken Unknown] Discharge Medications: Refer to the Discharge Home Medication list for PRN reason. - Orders Services needed: Home Care, Registered Nurse, Master Web Site Project Manager, Physical Therapy, Occupational Therapy Home Care Face to Face: I certify that this patient was under my care and that I had the required [id number] encounter meeting the encounter requirements on the discharge day. My findings support the fact that the patient is homebound as defined in CMS Chapter 7 Medicare Benefits Manual 30.1.1, The condition of the patient is such that there exists a normal inability to leave home and consequently, leaving home would require a considerable and taxing effort. Diet Recommendation: no restrictions on diet Wound Care Instructions: Keep dressing clean, dry, intact Sutures/[place] Site: Left knee Activity/Weight Bearing Restrictions: Weight bearing as tolerated in brace - Labs/Radiology BMP Date: 04/18/16 - Follow Up Care Current Providers and Referrals: Jostin Nichols MD [Medical Doctor] - (Follow up as directed. Call to schedule appt.) Patient,NotPresent [Unknown] - As per Instructions
[2016-04-14] MEDS ORDERED: VODKA 50 ML BOTTLE PO ONE (15:04)
[2016-04-14] MEDS ORDERED: NS 1,000 ML IV SCH (16:15)
[2016-04-14] MEDS: VODKA 50 ML BOTTLE PO SCH (17:21)
[2016-04-14 18:28] LABS: POTASSIUM 3.6 mEq/L (3.5-5.2)
[2016-04-15] MEDS: oxyCODONE IR 5 MG TAB PO PRN ×3 (00:36→13:51)
[2016-04-15 05:27] LABS: ANION GAP 7 mEq/L (8-16); CALCIUM 8.8 mg/dL (8.5-10.4); CARBON DIOXIDE 25 mEq/l (22-31); CHLORIDE 97 mEq/L (97-110); CREATININE 0.6 mg/dL (0.7-1.3); GLOMERULAR FILTRATION RATE > 60; GLUCOSE 105 mg/dL (70-100); POTASSIUM 3.9 mEq/L (3.5-5.2); SODIUM 129 mEq/L (134-144)
[2016-04-15 07:46] VITALS: PULSE 102; RESP 16; TEMP 97.9; O2SAT 94
[2016-04-15 07:49] VITALS: BP 150/107
[2016-04-15] MEDS ORDERED: POTASSIUM CL 10 MEQ TAB PO ONE (07:49)
--- NOTE | 2016-04-15 08:05 | SOAPPROG ---
RODER[facility] Progress Note Assessment/Plan: Assessment: S/P ORIF L Distal femur fx Pain improved Up with PT Mandi diet Dressing intact/ No D/C Distal NVI Plan: OOB/PT Probable D/C tomorrow 04/12/16 14:19 04/14/16 08:31 Improved with PT Pain tolerable Will D/C home with home care 04/15/16 08:01 Knee pain tolerable. "wants to go" Dressing intact, no D/C Distal NV Unchanged Discussed with patient IM service concerns over his medical condition and making sure he was "safe" from a medical standpoint from D/C + this taking precedent over his orthopedic issues. OK for D/C from Ortho standpoint as long as cleared by IM. Objective: Vital Signs Temp Pulse Resp BP Pulse Ox 36.6 C 102 H 16 150/107 H 94 04/15/16 07:45 04/15/16 07:45 04/15/16 07:45 04/15/16 07:45 04/15/16 07:45 Laboratory Results 04/14/16 04:30 04/15/16 04:50 04/14/16 04/15/16 04/16/16 05:59 05:59 05:59 Intake Total 1700 Output Total 900 955 20 Balance -900 745 -20 PT 13.4 SEC (12.0-15.0) 04/10/16 16:25 INR 1.03 (0.83-1.16) 04/10/16 16:25 ICD10 Worksheet Patient Problems: Problems Problem Status Diagnosed Chronic hepatitis Acute Femur fracture, left Acute Pancreatitis Acute
[2016-04-15] MEDS: ENOXAPARIN 40 MG/0.4 ML SYR SC SCH (09:14)
[2016-04-15] MEDS: SENNOSIDES/DOCUSATE SODIUM TAB PO SCH (09:14)
[2016-04-15] MEDS: GABAPENTIN 100 MG CAP PO SCH (09:14)
[2016-04-15] MEDS: POLYETHYLENE GLYCOL 3350 17 GM PKT PO SCH (09:15)
--- NOTE | 2016-04-15 12:42 | HOSPPROG ---
Hospitalist Progress Note Assessment/Plan: Patient is a 70-year-old male who had a fall that occurred prior to his admission. He slipped on the ice and had sudden onset of pain in the distal femur/proximal knee area. A knee x-ray was performed which showed a intercondylar distal femur fracture. #. Intercondylar distal femur fracture * POD #4 ORIF * has brace in place * pain is overall well managed #. Tachycardia w/hypotension * fluid bolus yesterday/ hypotension resolved/ still intermittent tachycardic ( better) #. Abnormal ECG * has no chest pain #. Hyponatremia * looked at previous labs on another admission * hx of this * will have home care f/u with him #. Severe protein malnutrition/ Underweight with a BMI of 17.6 #. Neuropathic pain * started on gabapentin * no c/o pain #. Hx of alcohol use and nicotine dependence/suspect he is withdrawing * admits to 2 shot of Anthony Barakat in the evening/ spoke with patient's daughter , he drinks frequently through out the day * vodka and prn Librium #. DVT prophylaxis: LMWH #.Plan: dc if home equipment is available Subjective: Zi said he is having leg pain, is dressed and wants to leave as soon as possible. Objective: Vital Signs Temp Pulse Resp BP Pulse Ox 36.6 C 102 H 16 150/107 H 94 04/15/16 07:45 04/15/16 07:45 04/15/16 07:45 04/15/16 07:45 04/15/16 07:45 Laboratory Results 04/14/16 04:30 04/15/16 04:50 04/14/16 04/15/16 04/16/16 05:59 05:59 05:59 Intake Total 1700 Output Total 900 955 20 Balance -900 745 -20 PT 13.4 SEC (12.0-15.0) 04/10/16 16:25 INR 1.03 (0.83-1.16) 04/10/16 16:25 - Physical Exam Constitutional: no apparent distress, cachectic Eyes: PERRL Ears, Nose, Mouth, Throat: hearing normal Cardiovascular: regular rate and rhythym Respiratory: no respiratory distress Gastrointestinal: normoactive bowel sounds Skin: warm Musculoskeletal: muscular tenderness Neurologic: AAOx3 Psychiatric: interacting appropriately, anxious ICD10 Worksheet Patient Problems: Problems Problem Status Diagnosed Chronic hepatitis Acute Femur fracture, left Acute Pancreatitis Acute
--- NOTE | 2016-04-15 12:48 | PDIAF ---
- Diagnosis Diagnosis: femur fracture Code Status: Full Code - Medication Management Discharge Medications: Medications to Continue on Transfer Multivitamins [Multivitamin (*)] 1 each PO DAILY 04/10/16 [Last Taken Unknown] Polyethylene Glycol 3350 [Miralax 17 gm (*)] 17 gm PO DAILY #0 pkt 04/15/16 [ Last Taken Unknown] Sennosides/Docusate Sodium [Senokot-S] 1 - 2 tab PO BID #0 tab 04/15/16 [Last Taken Unknown] oxyCODONE IR [Oxycodone Ir (*)] 5 - 10 mg PO Q3HRS PRN #0 tab 04/15/16 [Last Taken Unknown] Discharge Medications: Refer to the Discharge Home Medication list for PRN reason. - Orders Services needed: Home Care, Registered Nurse, Master Counselor Aide, Physical Therapy, Occupational Therapy Home Care Face to Face: I certify that this patient was under my care and that I had the required [id number] encounter meeting the encounter requirements on the discharge day. My findings support the fact that the patient is homebound as defined in CMS Chapter 7 Medicare Benefits Manual 30.1.1, The condition of the patient is such that there exists a normal inability to leave home and consequently, leaving home would require a considerable and taxing effort. Diet Recommendation: no restrictions on diet Diet Texture: Regular Texture Diet Wound Care Instructions: Keep dressing clean, dry, intact Sutures/[place] Site: Left knee Activity/Weight Bearing Restrictions: Weight bearing as tolerated in brace - Labs/Radiology BMP Date: 04/18/16 - Follow Up Care Current Providers and Referrals: Jostin Nichols MD [Medical Doctor] - (Follow up as directed. Call to schedule appt.) Patient,NotPresent [Unknown] - As per Instructions
--- NOTE | 2016-04-15 14:53 | GDS ---
[f rep st] DISCHARGE SUMMARY DISCHARGE DIAGNOSES: 1. Intercondylar distal femur fracture, postop day #4. 2. Tachycardia with associated hypotension. 3. Abnormal electrocardiogram. 4. Hyponatremia. 5. Severe protein calorie malnutrition, underweight with a body mass index of 17.6. 6. Neuropathic pain. 7. Alcohol use and nicotine dependence. CONSULTATIONS: 1. Dr. Edouard Thomas. 2. Dr. Jostin Nichols, admitting physician. HISTORY: Briefly, the patient is a 70-year-old gentleman with a history of pancreatitis and untreated hepatitis C who presented with a fall. He slipped on ice and had a sudden onset of pain in the distal femur and proximal knee area , and was unable to bear weight. He came to the ER and it was noted that he did have this injury. He was seen and evaluated by Dr. Nichols and on 2016 he had an open reduction, internal fixation of the left intercondylar distal femur fracture. HOSPITAL COURSE BY PROBLEM: 1. Intercondylar distal femur fracture. He is postop day #4. He has a brace in place. His pain is overall well managed. 2. Tachycardia with hypotension. He was given a fluid bolus. Hypotension resolved. He has had intermittent tachycardia. 3. Abnormal electrocardiogram. He has had no chest pain. 4. Hyponatremia. He has a history of this. I have explained to him and his family that low sodium levels increase the risk of falling. He wants to be discharged home anyway. He will have labs checked in a few days. 5. Severe protein calorie malnutrition. Evidenced by aspen criteria. He is underweight with a body mass index of 17.6. 6. Neuropathic pain. He was treated with gabapentin. I have not continued this because he will be on narcotics and I am concerned he will be drinking in addition. 7. Alcohol use and nicotine dependence. On admission, he denies drinking. In talking with the patient and his daughter, he does drink frequently. His tachycardia improved when he was treated with vodka and p.r.n. Librium. CONDITION AT DISCHARGE: Stable. Blood pressure is 159/99, heart rate is 96, respiratory rate is 17, O2 saturations room air are 96%, temperature is 36.7 Celsius. MEDICATIONS AT DISCHARGE: Please see the EMR. DISCHARGE INSTRUCTIONS: 1. Return to the ER for any falls. 2. Follow up with Orthopedics. 3. He will be getting home care with OT and PT. I have also asked for Nursing and Baggage Smasher to further evaluate to make sure he is eating and doing okay. 4. Recommending no driving until he is cleared by Orthopedics. 5. No drinking or driving while on pain medications. TIME SPENT: Greater than 30 minutes discharging and coordinating care. /[id number]/MODL MTDD
== END 2016-04-15 14:21 | disposition home health service (06) | DRG 480 ==
LOC: EDUNIT# → F3N 21:15 → OBSVTOIN 21:20 → UNDODISOB 04-11 11:46
PROVIDERS: ADMIT Orthopaedic Surgery Sports Medicine; ATTEND Internal Medicine
PROC: 0QSC04Z Reposition Left Lower Femur with Internal Fixation Device, Open Approach (ICD-10-PCS; principal; 2016-04-11 18:00)
DX: S72.432A Displaced fracture of medial condyle of left femur, initial encounter for closed fracture (principal); E43 Unspecified severe protein-calorie malnutrition; Z68.1 Body mass index [BMI] 19.9 or less, adult; B18.2 Chronic viral hepatitis C; F10.230 Alcohol dependence with withdrawal, uncomplicated; E87.1 Hypo-osmolality and hyponatremia; G62.9 Polyneuropathy, unspecified; F17.200 Nicotine dependence, unspecified, uncomplicated; W01.0XXA Fall on same level from slipping, tripping and stumbling without subsequent striking against object, initial encounter
CPT/HCPCS: 96374; 97116-GP; 97162-GP; 97165-GO; 97530-GP; 97535-GO; C1713; G8978-GP-CL; G8979-GP-CJ; G8987-GO-CK; G8988-GO-CI; G8989-GO-CI; J0360; J0690; J1170; J1650; J2250; J2405; J2704; J2765; J3010; L1830

== ENCOUNTER 2016-04-29 17:06 | Inpatient (IN) | payer OTHER ==
--- NOTE | 2016-04-29 17:24 | EDPHY ---
H & P Stated Complaint: DIRECT ADMIT, ABCESS L KNEE FOR SURGERY TOMORROW HPI/ROS: HPI CHIEF COMPLAINT: Chronic wound left knee HISTORY OF PRESENT ILLNESS: This patient is a 70-year-old male, denies having any significant medical history is followed by Dr. Nichols and was sent initially here to the hospital for direct admission however there are no beds available in the hospital. In the emergency room he has a chronic nonhealing left knee wound that needs washout and closure. Dr. Nichols then sent him here to be admitted IV antibiotics and blood work. 174: upon arrival to the emergency room if this patient did contact Dr. Nichols explained that there are no inpatient hospital beds. I explained that the patient will need to sit in the emergency room all night if he needs to be admitted versus going home and coming back tomorrow morning for surgery. Dr. Nichlos tells me that the patient cannot go home as he has very poor transportation and is at great risk of not coming back due to severe pain in his knee and poor transportation issues. He is very concerned that if we send him home that he will not come back his knee infection with chronic on healing wound will get worse and will have very bad outcome. He is requesting that we at least keep him in the emergency room overnight and if at all possible admitted to the hospital for bed opens up. Past Medical History: Denies any medical history Past Surgical History: Left knee surgery Social History: Denies use of drugs, alcohol, tobacco products does in times endorse marijuana Family History: Noncontributory ROS REVIEW OF SYSTEMS: A comprehensive 10 point review of systems is otherwise negative aside from elements mentioned in the history of present illness. Exam Constitutional cachectic appearing, malnourished, otherwise nontoxic triage nursing summary reviewed, vital signs reviewed, awake/alert. (noted be tachycardic) Eyes normal conjunctivae and sclera, EOMI, PERRLA. HENT normal inspection, atraumatic, moist mucus membranes, no epistaxis, neck supple/ no meningismus, no raccoon eyes. Respiratory clear to auscultation bilaterally, normal breath sounds, no respiratory distress, no wheezing. Cardiovascular rate normal, regular rhythm, no murmur, no edema, distal pulses normal. Gastrointestinal soft, non-tender, no rebound, no guarding, normal bowel sounds, no distension, no pulsatile mass. Genitourinary no CVA tenderness. Musculoskeletal left knee: medial aspect of left knee joint line nurse hardware exposed, and a circular wound, no felipe pus, no foul smell, tender palpation, limited range of motion due to pain, distally neurovascular intact, no midline vertebral tenderness, full range of motion, no calf swelling, no tenderness of extremities, no meningismus, good pulses, neurovascularly intact. Skin pink, warm, & dry, no rash, skin atraumatic. Neurologic awake, alert and oriented x 3, AAOx3, moves all 4 extremities equally, motor intact, sensory intact, CN II-XII intact, normal cerebellar, normal vision, normal speech. Psychiatric normal mood/affect. Heme/Lymph/Immune no lymphadenopathy. Differential Diagnosis: includes but is not limited to in a particular order, joint infection, hardware infection, infected joint, sepsis, dehydration Medical Decision Making: This patient had an IV established, blood work will be drawn, patient received IV and staff. We will try to admit this patient to the hospital for OR tomorrow. Patient be made NPO at midnight. Re-evaluation: 1813: Patient is afebrile here noted to be tachycardia arrival. Getting IV fluids. 2 g IV Ancef been ordered. Blood work has been ordered. The patient is resting comfortably has no complaints he does understand will be admitted to the hospital for septic joint wound infection hardware infection. Patient is understanding that there is no current beds at this time is agreeable to stay in the emergency room until there is a bed. This may be till tomorrow. I did speak with Dr. Murphy the hospitalist service agrees to admit this patient. Source: Patient - Personal History Current Tetanus/Diphtheria Vaccine: Yes Tetanus Vaccine Date: < 10 YEARS - Medical/Surgical History Hx Asthma: No Hx Chronic Respiratory Disease: No Hx Diabetes: No Hx Cardiac Disease: No Hx Renal Disease: No Hx Cirrhosis: Yes Hx Alcoholism: No Hx HIV/AIDS: No Hx Splenectomy or Spleen Trauma: No Other PMH: back fx 2010, SHOULDER INJURIES, COLLAPSED, SCHRAPNEL IN LEGS FROM [place], HEPATITIS C - Social History Smoking Status: Light smoker Constitutional: Initial Vital Signs Temperature (C) 36.3 C 04/29/16 17:09 Heart Rate 127 H 04/29/16 17:09 Respiratory Rate 16 04/29/16 17:09 Blood Pressure 119/96 H 04/29/16 17:09 O2 Delivery Mode Room Air Allergies/Adverse Reactions: No Known Allergies Allergy (Unverified 05/29/14 08:46) Home Medications: Medication Instructions Recorded Multivitamins [Multivitamin (*)] 1 each PO DAILY 04/10/16 Polyethylene Glycol 3350 [Miralax 17 gm PO DAILY #0 pkt 04/15/16 17 gm (*)] Sennosides/Docusate Sodium 1 - 2 tab PO BID #0 tab 04/15/16 [Senokot-S] oxyCODONE IR [Oxycodone Ir (*)] 5 - 10 mg PO Q3HRS PRN #0 tab 04/15/16 Calcium Carbonate [Oyster Shell 1,000 mg PO DAILY 04/29/16 Calcium 500 mg (*)] Cholecalciferol Vit D3 [Vitamin D3 1,000 units PO DAILY 04/29/16 (*)] Medical Decision Making - Data Points Laboratory Results: Laboratory Results 04/29/16 18:00 04/29/16 18:00 WBC 17.12 H 10^3/uL (3.80-9.50) RBC 4.27 L 10^6/uL (4.40-6.38) Hgb 14.5 g/dL (13.7-17.5) Hct 40.6 % (40.0-51.0) MCV 95.1 fL (81.5-99.8) MCH 34.0 pg (27.9-34.1) MCHC 35.7 g/dL (32.4-36.7) RDW 12.5 % (11.5-15.2) Plt Count 447 H 10^3/uL (150-400) MPV 9.2 fL (8.7-11.7) Neut % (Auto) 81.8 H % (39.3-74.2) Lymph % (Auto) 11.8 L % (15.0-45.0) Preble % (Auto) 4.8 % (4.5-13.0) Eos % (Auto) 0.4 L % (0.6-7.6) Baso % (Auto) 0.4 % (0.3-1.7) Nucleat RBC Rel Count 0.0 % (0.0-0.2) Absolute Neuts (auto) 14.02 H 10^3/uL (1.70-6.50) Absolute Lymphs (auto) 2.02 10^3/uL (1.00-3.00) Absolute Monos (auto) 0.82 H 10^3/uL (0.30-0.80) Absolute Eos (auto) 0.06 10^3/uL (0.03-0.40) Absolute Basos (auto) 0.06 10^3/uL (0.02-0.10) Absolute Nucleated RBC 0.00 10^3/uL (0-0.01) Immature Gran % 0.8 % (0.0-1.1) Immature Gran # 0.14 H 10^3/uL (0.00-0.10) ESR Pending Sodium Pending Potassium Pending Chloride Pending Carbon Dioxide Pending Anion Gap Pending BUN Pending Creatinine Pending Estimated GFR Pending Glucose Pending Calcium Pending C-Reactive Protein Pending Departure - Departure Disposition: [facility] Inpatient Acute Clinical Impression: Infection of left knee Condition: Fair Referrals: NONE *PRIMARY CARE P,. [Primary Care Provider] - As per Instructions
[2016-04-29] MEDS ORDERED: ONDANSETRON 4 MG/2 ML VIAL IVP ONE (17:47)
[2016-04-29] MEDS ORDERED: NS 1,000 ML IV ONE (17:47)
[2016-04-29] MEDS ORDERED: ceFAZolin 2 GM/DEXTROSE 100 ML IV ONE (17:47)
[2016-04-29 18:12] LABS: % IMMATURE GRANULYOCYTES 0.8 % (0.0-1.1); ABSOLUTE IMMATURE GRANULOCYTES 0.14 10^3/uL (0.00-0.10); ADD DIFF? NO; ADD MORPH? NO; ADD SCAN? NO; ATYPICAL LYMPHOCYTE FLAG 10 (0-99); FRAGMENT RBC FLAG 0 (0-99); HEMATOCRIT 40.6 % (40.0-51.0); HEMOGLOBIN 14.5 g/dL (13.7-17.5); LEFT SHIFT FLG 0 (0-99); LIPEMIA HEMOLYSIS FLAG 90 (0-99); MEAN CELL HEMOGLOBIN CONCENTR. 35.7 g/dL (32.4-36.7); MEAN CELL VOLUME 95.1 fL (81.5-99.8); MEAN PLATELET VOLUME 9.2 fL (8.7-11.7); PLATELET CLUMPS FLAG 0 (0-99); PLATELET COUNT 447 10^3/uL (150-400); RED BLOOD CELL COUNT 4.27 10^6/uL (4.40-6.38); RED CELL DISTRIBUTION WIDTH 12.5 % (11.5-15.2)
[2016-04-29] MEDS ORDERED: ceFAZolin 2 GM in D5W 100 ML IV ONE (18:30)
[2016-04-29 18:40] LABS: SEDIMENTATION RATE 59 MM/HR (0-20)
[2016-04-29 18:42] LABS: ANION GAP 14 mEq/L (8-16); C-REACTIVE PROTEIN 5.4 mg/L (<10.0); CALCIUM 11.5 mg/dL (8.5-10.4); CARBON DIOXIDE 24 mEq/l (22-31); CHLORIDE 97 mEq/L (97-110); CREATININE 0.8 mg/dL (0.7-1.3); GLOMERULAR FILTRATION RATE > 60; GLUCOSE 112 mg/dL (70-100); POTASSIUM 3.9 mEq/L (3.5-5.2); SODIUM 135 mEq/L (134-144)
[2016-04-29] MEDS ORDERED: ONDANSETRON 4 MG/2 ML VIAL IVP PRN (20:41)
[2016-04-29] MEDS ORDERED: ONDANSETRON DISINTEGRATING 4 MG TAB PO PRN (20:41)
[2016-04-29] MEDS ORDERED: ACETAMINOPHEN 325 MG TAB PO PRN (20:41)
[2016-04-29] MEDS: oxyCODONE IR 5 MG TAB PO PRN (20:49)
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
[2016-04-29] MEDS: ceFAZolin 2 GM/DEXTROSE 100 ML IV SCH (23:43)
[2016-04-30] MEDS: oxyCODONE IR 5 MG TAB PO PRN ×3 (02:20→21:46)
[2016-04-30] MEDS: NS 1,000 ML IV SCH ×2 (03:00→11:19)
[2016-04-30] MEDS: ceFAZolin 2 GM/DEXTROSE 100 ML IV SCH (05:00)
--- NOTE | 2016-04-30 09:22 | HOSPPROG ---
Hospitalist Progress Note Assessment/Plan: # L knee/femur with infected hardware and wound dehiscence - s/p ORIF with hardware [address] Nichols after fall/fracture - to OR today by Dr Nichols - cont antibiotics - ID consult - discussed with Dr Weston Segura # sepsis d/t above - no end organ damage # alcohol use -not withdrawing now, but follow closely # tobacco - declined nicotine patch # cachexia - reports being negative for HIV in past # severe protein calorie malnutrition - dietary c/s # htn - hold on tx today # FCFT # ppx - SCDs - needs lovenox post-op ## new pt to me chart reviewed images personally reviewed Subjective: has signficiant L knee pain Objective: Vital Signs Temp Pulse Resp BP Pulse Ox 36.5 C 92 18 160/99 H 96 04/30/16 08:57 04/30/16 08:57 04/30/16 08:57 04/30/16 08:57 04/30/16 08:57 04/29/16 04/30/16 05/01/16 05:59 05:59 05:59 Intake Total 1300 Balance 1300 - Physical Exam Constitutional: no apparent distress, cachectic Cardiovascular: regular rate and rhythym, no murmur, rub, or gallop Respiratory: no respiratory distress, no rales or rhonchi Gastrointestinal: normoactive bowel sounds, soft, non-tender abdomen, no palpable masses ICD10 Worksheet Patient Problems: Problems Problem Status Onset Infection of left knee Acute Chronic hepatitis Acute Femur fracture, left Acute Pancreatitis Acute
[2016-04-30] MEDS: CHOLECALCIFEROL VIT D3 1,000 UNITS TAB PO SCH (10:05)
[2016-04-30] MEDS: CALCIUM CARBONATE 500 MG TAB PO SCH (10:05)
[2016-04-30] MEDS: POLYETHYLENE GLYCOL 3350 17 GM PKT PO SCH (10:06)
[2016-04-30] MEDS: MULTIVITAMINS 1 EACH TAB PO SCH (10:06)
[2016-04-30 10:42] LABS: INR 1.06 (0.83-1.16); PROTIME(PATIENT) 13.7 SEC (12.0-15.0)
[2016-04-30 11:02] LABS: ALBUMIN 3.6 g/dL (3.5-5.0); BILIRUBIN,TOTAL 1.4 mg/dL (0.1-1.4); BILIRUBIN-CONJUGATED 0.8 mg/dL (0.0-0.5); BILIRUBIN-UNCONJUGATED 0.6 mg/dL (0.0-1.1); TOTAL PROTEIN 8.1 g/dL (6.3-8.2)
[2016-04-30] MEDS ORDERED: PNEUMOC 13-VAL CONJ-DIP CRM/PF 0.5 ML SYR IM ONE ×2 (11:28→18:00)
[2016-04-30] MEDS ORDERED: POLYMYXIN B SULFATE 500,000 UNIT/10 ML SYR IRR ONE (12:17)
[2016-04-30] MEDS ORDERED: BUPIVACAINE/EPI 0.5% 30 ML SDV ONE (12:17)
[2016-04-30] MEDS ORDERED: BACITRACIN 50,000 UNITS/10 ML SYR IRR ONE (12:18)
[2016-04-30] MEDS ORDERED: ceFAZolin 2 GM in D5W 100 ML IV SCH (12:30)
[2016-04-30] MEDS ORDERED: CEFAZOLIN 2 GM/DEXTROSE/100 ML BAG IV ONE (12:37)
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
[2016-04-30] MEDS ORDERED: MIDAZOLAM 2 MG/2 ML VIAL ONE (12:53)
[2016-04-30] MEDS ORDERED: PROPOFOL 200 MG/20 ML VIAL ONE (13:06)
[2016-04-30] MEDS ORDERED: LIDOCAINE 2% JELLY 5 ML TUBE ONE (13:06)
[2016-04-30] MEDS ORDERED: fentaNYL 100 MCG/2 ML INJ ONE ×3 (13:06→15:14)
[2016-04-30] MEDS ORDERED: LABETALOL HCL 5 MG/ML 20 ML MDV ONE ×2 (13:06→15:00)
[2016-04-30] MEDS ORDERED: ONDANSETRON 4 MG/2 ML VIAL ONE (13:06)
[2016-04-30] MEDS ORDERED: LIDOCAINE 2% 5 ML SDV ONE (13:09)
[2016-04-30] MEDS ORDERED: BUPIVACAINE 0.5% 30 ML SDV ONE (14:31)
--- NOTE | 2016-04-30 14:56 | POSTOPPROG ---
Post Op Note Date of Operation: 04/30/16 Surgeon: Jostin Nichols Anesthesia: GET(General Endotracheal) Pre-op Diagnosis: open wound l medial knee, l med fem condyle fx Post-op Diagnosis: same Procedure: I&D L Knee, revision ORIF L femur Inf/Abcess present in the surg proc area at time of surgery?: No EBL: Minimal
[2016-04-30] MEDS ORDERED: D5W 1/2 NS W/ 20 KCl/L 1,000 ML IV SCH (15:00)
[2016-04-30] MEDS ORDERED: HYDROmorphONE/DILAUDID 1 MG/ML SYR ONE (15:14)
[2016-04-30] MEDS: hydrALAZINE 10 MG TAB PO PRN (18:41)
[2016-04-30] MEDS: ceFAZolin 2 GM in D5W 100 ML IV SCH (21:52)
[2016-04-30] MEDS ORDERED: ceFAZolin 2 GM/DEXTROSE 100 ML IV SCH (22:00)
[2016-05-01] MEDS: oxyCODONE IR 5 MG TAB PO PRN ×5 (03:35→20:32)
[2016-05-01] MEDS: ceFAZolin 2 GM in D5W 100 ML IV SCH ×3 (05:06→20:32)
[2016-05-01 05:27] LABS: % IMMATURE GRANULYOCYTES 0.7 % (0.0-1.1); ADD DIFF? NO; ADD MORPH? NO; ADD SCAN? NO; ATYPICAL LYMPHOCYTE FLAG 10 (0-99); FRAGMENT RBC FLAG 0 (0-99); HEMATOCRIT 35.2 % (40.0-51.0); HEMOGLOBIN 12.5 g/dL (13.7-17.5); LEFT SHIFT FLG 0 (0-99); LIPEMIA HEMOLYSIS FLAG 90 (0-99); MEAN CELL HEMOGLOBIN CONCENTR. 35.5 g/dL (32.4-36.7); MEAN CELL VOLUME 95.7 fL (81.5-99.8); MEAN PLATELET VOLUME 9.3 fL (8.7-11.7); PLATELET CLUMPS FLAG 0 (0-99); PLATELET COUNT 299 10^3/uL (150-400); RED BLOOD CELL COUNT 3.68 10^6/uL (4.40-6.38); RED CELL DISTRIBUTION WIDTH 12.4 % (11.5-15.2)
[2016-05-01 05:37] LABS: ANION GAP 9 mEq/L (8-16); CALCIUM 9.6 mg/dL (8.5-10.4); CARBON DIOXIDE 23 mEq/l (22-31); CHLORIDE 97 mEq/L (97-110); CREATININE 0.7 mg/dL (0.7-1.3); GLOMERULAR FILTRATION RATE > 60; GLUCOSE 116 mg/dL (70-100); POTASSIUM 3.7 mEq/L (3.5-5.2); SODIUM 129 mEq/L (134-144)
--- NOTE | 2016-05-01 05:47 | SOAPPROG ---
SOAP Progress Note Assessment/Plan: Assessment: S/P I&D / Revision ORIF L Distal femur fx Pain tolerable +U/O Mandi po intake Dressing intact, no D/C Distal NVI No pain with gentle ROM Plan: OOB/PT Knee CPM OK for D/C from ortho standpoint when medically stable and home care arranged 05/01/16 05:41 Objective: Vital Signs Temp Pulse Resp BP Pulse Ox 36.9 C 100 16 109/75 95 05/01/16 04:41 05/01/16 04:41 05/01/16 04:41 05/01/16 04:41 05/01/16 04:41 Microbiology 04/30/16 11:40 Gram Stain - Final Thigh - Anaerobic Tube/Swab Laboratory Results 05/01/16 05:12 05/01/16 05:12 04/29/16 04/30/16 05/01/16 05:59 05:59 05:59 Intake Total 1300 2150 Output Total 700 Balance 1300 1450 PT 13.7 SEC (12.0-15.0) 04/30/16 10:06 INR 1.06 (0.83-1.16) 04/30/16 10:06 ICD10 Worksheet Patient Problems: Problems Problem Status Onset Infection of left knee Acute Chronic hepatitis Acute Femur fracture, left Acute Pancreatitis Acute
--- NOTE | 2016-05-01 05:49 | PDIAF ---
- Diagnosis Code Status: Full Code - Medication Management Discharge Medications: Medications to Continue on Transfer Multivitamins [Multivitamin (*)] 1 each PO DAILY 04/10/16 [Last Taken 04/28/16] Polyethylene Glycol 3350 [Miralax 17 gm (*)] 17 gm PO DAILY #0 pkt 04/15/16 [ Last Taken 04/28/16] Sennosides/Docusate Sodium [Senokot-S] 1 - 2 tab PO BID #0 tab 04/15/16 [Last Taken 04/28/16] oxyCODONE IR [Oxycodone Ir (*)] 5 - 10 mg PO Q3HRS PRN #0 tab 04/15/16 [Last Taken 04/29/16 16:00 10MG] Calcium Carbonate [Oyster Shell Calcium 500 mg (*)] 1,000 mg PO DAILY 04/29/16 [ Last Taken 04/28/16] Cholecalciferol Vit D3 [Vitamin D3 (*)] 1,000 units PO DAILY 04/29/16 [Last Taken 04/28/16] Discharge Medications: Refer to the Discharge Home Medication list for PRN reason. - Orders Services needed: Physical Therapy Wound Care Instructions: Keep dressing clean, dry, intact Sutures/Joellen Site: L medial knee - leave in place Activity/Weight Bearing Restrictions: WBAT in brace. Actice and Passive knee ROM - Follow Up Care Current Providers and Referrals: NONE *PRIMARY CARE P,. [Primary Care Provider] - As per Instructions
[2016-05-01] MEDS: POLYETHYLENE GLYCOL 3350 17 GM PKT PO SCH (07:45)
[2016-05-01] MEDS: MULTIVITAMINS 1 EACH TAB PO SCH (07:45)
[2016-05-01] MEDS: CHOLECALCIFEROL VIT D3 1,000 UNITS TAB PO SCH (07:45)
[2016-05-01] MEDS: CALCIUM CARBONATE 500 MG TAB PO SCH (07:46)
--- NOTE | 2016-05-01 13:28 | GOP ---
[f rep st] OPERATIVE REPORT DATE OF OPERATION: 04/30/2016 SURGEON: Jostin Nichols MD ANESTHESIA: General. PREOPERATIVE DIAGNOSIS: 1. Left medial knee open wound. 2. Left medial femoral condyle fracture. POSTOPERATIVE DIAGNOSIS: 1. Left medial knee open wound. 2. Left medial femoral condyle fracture. PROCEDURE PERFORMED: 1. Irrigation and debridement of left knee including skin, subcutaneous tissue, muscle, and bone. 2. Hardware removal, left medial femoral condyle. 3. Revision open reduction, internal fixation, left medial femoral condyle fracture. 4. Intraoperative use fluoroscopy. FINDINGS: ESTIMATED BLOOD LOSS: Minimal. INDICATIONS: Patient is a 70-year-old, who several weeks prior sustained a left knee medial femoral condyle fracture. Patient underwent an uncomplicated open reduction, internal fixation. Patient d id not present for his initial postop followups. On initial presentation, upon removal of the dress ing, there was noted to be an open wound at the distal aspect of his incision with visible hardware. It was felt that irrigation, debridement, and partial or complete hardware removal was recommended . Patient acknowledged he understood the potential risks including, but not limited to, bleeding, i nfection, neurovascular damage, loss of limb, loss of function, malunion, nonunion, continued risk o f infection despite operative treatment, and anesthetic risks. He acknowledged he understood the po tential risks, planned procedure and postoperative plan well. Had all questions answered. He gives consent for the operative procedure. DESCRIPTION OF PROCEDURE: Patient brought to the operating room after IV antibiotics were administe red. A general anesthetic was administered. Tourniquet was placed on his left thigh and his left l ower extremity was prepped and draped in standard sterile fashion. A portion of his medial knee inc ision was opened. Skin and subcutaneous tissue were sharply incised. The open wound portion was sh arply ellipsed. There was no evidence of purulence or necrotic tissue. The 2 distal screws in the plate were removed as they had some evidence of loosening and were felt to be a source of continued hardware failure. The plate was snug against the bone. The 2 proximal screws, which were preservin g the "buttress" component of the hardware, were left in place. These were tested and found to have stable fixation. Utilizing 7 L of sterile saline irrigant with pulsatile lavage, the wound was cops iously irrigated. To allow for fixation in addition to the buttress component of the plate, several 4 mm cortical screws were placed in lag fashion across the fracture site, gaining favorable purchas e. Fluoroscopic views confirmed favorable hardware and fracture position. Attention was directed t oward closure. Deep tissue was closed with 2-0 Vicryl suture in interrupted fashion, subcutaneous t issues closed with 3-0 Vicryl suture in interrupted fashion, skin was closed with 3-0 nylon interrup reba vertical mattress sutures. The wounds were dressed with sterile Adaptic, 4 x 4, Kerlix, and Russell wrap. Patient was placed in a hinged knee brace. Patient tolerated procedure well. Was taken rec overy room, extubated, in stable condition postoperatively. All sponge, needle, and instrument coun ts were reported as being correct. DRAINS: None. COMPLICATIONS: None. PLAN: Patient will be admitted for medical management. He will be allowed to weight-bear as tolera reba on his upper extremity. /[id number]/MODL
--- NOTE | 2016-05-01 16:19 | PCMIDPN ---
Assessment/Plan: Assessment/Plan: * Left lower extremity wound infection s/p ORIF with exposed hardware s/p debridement and removal of exposed screw: Operative findings reviewed with Dr. Nichols without deep purulence noted. Nonoperative culture with growth of Enterobacter cloacae - culture obtained of purulence by Dr. Segura. Will add levofloxacin 750 mg po daily to cefazolin pending additional culture data and susceptibility profile. Anticipate will need to treat as if osteomyelitis present given exposed hardware. 05/01/16 16:16 Subjective: Patient without specific complaints. Operative findings reviewed with Dr. Nichols today. Objective: Vital Signs Temp Pulse Resp BP Pulse Ox 36.9 C 112 H 15 109/64 98 05/01/16 15:56 05/01/16 15:56 05/01/16 15:56 05/01/16 15:56 05/01/16 15:56 Microbiology 04/30/16 11:40 Gram Stain - Final Thigh - Anaerobic Tube/Swab Laboratory Results 05/01/16 05:12 05/01/16 05:12 04/30/16 05/01/16 05/02/16 05:59 05:59 05:59 Intake Total 1300 2150 350 Output Total 700 100 Balance 1300 1450 250 ESR 59 MM/HR (0-20) H 04/29/16 18:00 C-Reactive Protein 5.4 mg/L (<10.0) 04/29/16 18:00 Cefazolin # 2 Cultures 3+ white blood cells, growth of Enterobacter cloacae Blood cultures x2 no growth - Physical Exam General Appearance: alert, no apparent distress, thin EENT: No scleral icterus, No thrush Respiratory: lungs clear, No respiratory distress Cardiac/Chest: regular rate, rhythm Extremities: other (Left lower extremity dressed postoperatively) Abdomen: non-tender, No distended ICD10 Worksheet Patient Problems: Problems Problem Status Onset Infection of left knee Acute Chronic hepatitis Acute Femur fracture, left Acute Pancreatitis Acute
--- NOTE | 2016-05-01 16:23 | HOSPPROG ---
Hospitalist Progress Note Assessment/Plan: 70-year-old male admitted the hospital secondary to chronic wound infection. This is my 1st encounter with the patient, chart reviewed. Patient's care discussed with Dr. Danyel Nur of Infectious Disease. Hospitalist Progress Note Assessment/Plan: # L knee/femur with infected hardware and wound dehiscence - s/p ORIF with hardware [address] Nichols after fall/fracture - to OR 04/[address] Nichols - cont antibiotics - ID consult - discussed with Dr Nur -Enterobacter continue follow cultures # sepsis d/t above - no end organ damage # alcohol use -not withdrawing now, but follow closely # tobacco - declined nicotine patch # cachexia - reports being negative for HIV in past # severe protein calorie malnutrition - dietary c/s # htn - hold on tx today # FCFT # ppx - SCDs - needs lovenox post-op # hyperCa - Resolved ## new pt to me chart reviewed Subjective: up in the bed. No specific complaints of pain at this time. No other issues at this time tolerating regular diet. Objective: Vital Signs Temp Pulse Resp BP Pulse Ox 36.9 C 112 H 15 109/64 98 05/01/16 15:56 05/01/16 15:56 05/01/16 15:56 05/01/16 15:56 05/01/16 15:56 Microbiology 04/30/16 11:40 Gram Stain - Final Thigh - Anaerobic Tube/Swab Laboratory Results 05/01/16 05:12 05/01/16 05:12 04/30/16 05/01/16 05/02/16 05:59 05:59 05:59 Intake Total 1300 2150 350 Output Total 700 100 Balance 1300 1450 250 PT 13.7 SEC (12.0-15.0) 04/30/16 10:06 INR 1.06 (0.83-1.16) 04/30/16 10:06 - Physical Exam Constitutional: no apparent distress, chronically ill appearing, cachectic Eyes: PERRL, anicteric sclera, EOMI Ears, Nose, Mouth, Throat: moist mucous membranes, hearing normal, poor dentition Cardiovascular: regular rate and rhythym, No JVD, No tachycardia Respiratory: no respiratory distress, no rales or rhonchi, reduced air movement Gastrointestinal: No tenderness, No ascites, No guarding Skin: warm, normal color, no rashes or abrasions Musculoskeletal: no joint effusions, pain with ROM, generalized weakness Neurologic: AAOx3 Psychiatric: not anxious, not encephalopathic, thought process linear ICD10 Worksheet Patient Problems: Problems Problem Status Onset Pancreatitis Acute Chronic hepatitis Acute Femur fracture, left Acute Infection of left knee Acute
[2016-05-01] MEDS ORDERED: LACTULOSE 20 GM/30 ML UDCUP PO PRN (23:58)
[2016-05-01] MEDS ORDERED: BISACODYL 10 MG SUPP PR PRN (23:58)
[2016-05-01] MEDS ORDERED: MAGNESIUM HYDROXIDE 30 ML UDCUP PO PRN (23:58)
[2016-05-02] MEDS: oxyCODONE IR 5 MG TAB PO PRN ×5 (02:32→20:56)
[2016-05-02] MEDS: ceFAZolin 2 GM in D5W 100 ML IV SCH ×3 (04:09→20:58)
[2016-05-02] MEDS: hydrALAZINE 10 MG TAB PO PRN (04:48)
--- NOTE | 2016-05-02 06:00 | SOAPPROG ---
SOAP Progress Note Assessment/Plan: Assessment: S/P I&D / Revision ORIF L Distal femur fx Pain tolerable +U/O Mandi po intake Dressing intact, no D/C Distal NVI No pain with gentle ROM Plan: OOB/PT Knee CPM OK for D/C from ortho standpoint when medically stable and home care arranged 05/01/16 05:41 05/02/16 05:59 Pain improving Limited ambulation CPM well tolerated Dressing intact, No D/C NV unchanged Con't OOB/PT Dispo pending - agree with SNF placement Objective: Vital Signs Temp Pulse Resp BP Pulse Ox 36.6 C 107 H 18 162/101 H 99 05/02/16 04:44 05/02/16 04:44 05/02/16 04:44 05/02/16 04:48 05/02/16 04:44 Microbiology 04/30/16 11:40 Gram Stain - Final Thigh - Anaerobic Tube/Swab Laboratory Results 05/01/16 05:12 04/30/16 05/01/16 05/02/16 05:59 05:59 05:59 Intake Total 1300 2150 1620 Output Total 700 150 Balance 1300 1450 1470 PT 13.7 SEC (12.0-15.0) 04/30/16 10:06 INR 1.06 (0.83-1.16) 04/30/16 10:06 ICD10 Worksheet Patient Problems: Problems Problem Status Onset Infection of left knee Acute Chronic hepatitis Acute Femur fracture, left Acute Pancreatitis Acute
[2016-05-02 06:02] LABS: ANION GAP 8 mEq/L (8-16); CALCIUM 9.9 mg/dL (8.5-10.4); CARBON DIOXIDE 22 mEq/l (22-31); CHLORIDE 96 mEq/L (97-110); CREATININE 0.7 mg/dL (0.7-1.3); GLOMERULAR FILTRATION RATE > 60; GLUCOSE 94 mg/dL (70-100); POTASSIUM 3.7 mEq/L (3.5-5.2); SODIUM 126 mEq/L (134-144)
[2016-05-02] MEDS: POLYETHYLENE GLYCOL 3350 17 GM PKT PO SCH (08:58)
[2016-05-02] MEDS: CHOLECALCIFEROL VIT D3 1,000 UNITS TAB PO SCH (08:59)
[2016-05-02] MEDS: SENNOSIDES/DOCUSATE SODIUM TAB PO SCH ×2 (08:59→20:57)
[2016-05-02] MEDS: CALCIUM CARBONATE 500 MG TAB PO SCH (08:59)
[2016-05-02] MEDS: MULTIVITAMINS 1 EACH TAB PO SCH (08:59)
--- NOTE | 2016-05-02 15:34 | HOSPPROG ---
Hospitalist Progress Note Assessment/Plan: 70-year-old male admitted the hospital secondary to chronic wound infection. Hospitalist Progress Note Assessment/Plan: # L knee/femur with infected hardware and wound dehiscence - s/p ORIF with hardware [address] Nichols after fall/fracture - to OR 04/[address] Nichols - cont antibiotics - ID consult -Enterobacter continue follow cultures - possible osteomylitis # sepsis d/t above - no end organ damage # alcohol use -not withdrawing now, but follow closely # tobacco - declined nicotine patch # cachexia - reports being negative for HIV in past # severe protein calorie malnutrition - dietary c/s # htn - hold on tx today # FCFT # ppx - SCDs - needs lovenox post-op # hyperCa - Resolved # disposition - unclear at this time patient wishes to go home. Requires continued antibiotic therapy Awaiting ID recommendations Will develop a plan with case management Subjective: Feels fine today. Eager to be discharged home. No specific complaints of pain or other issues. Objective: Vital Signs Temp Pulse Resp BP Pulse Ox 36.4 C 110 H 16 115/76 97 05/02/16 11:31 05/02/16 11:31 05/02/16 11:31 05/02/16 11:31 05/02/16 11:31 Microbiology 04/30/16 11:40 Gram Stain - Final Thigh - Anaerobic Tube/Swab Wound Culture - Final Enterobacter Cloacae Laboratory Results 05/01/16 05:12 05/02/16 05:31 05/01/16 05/02/16 05/03/16 05:59 05:59 05:59 Intake Total 2150 1620 Output Total 700 150 Balance 1450 1470 PT 13.7 SEC (12.0-15.0) 04/30/16 10:06 INR 1.06 (0.83-1.16) 04/30/16 10:06 - Physical Exam Constitutional: appears nourished, chronically ill appearing Eyes: PERRL, anicteric sclera Ears, Nose, Mouth, Throat: moist mucous membranes, poor dentition Cardiovascular: regular rate and rhythym, No JVD Respiratory: no respiratory distress, reduced air movement Gastrointestinal: No tenderness, No ascites Skin: warm, normal color Musculoskeletal: joint tenderness, generalized weakness Neurologic: AAOx3 Psychiatric: interacting appropriately, not anxious ICD10 Worksheet Patient Problems: Problems Problem Status Onset Pancreatitis Acute Chronic hepatitis Acute Femur fracture, left Acute Infection of left knee Acute
--- NOTE | 2016-05-02 17:48 | PCMIDPN ---
Assessment/Plan: Assessment: Left lower extremity wound infection status post ORIF. Patient had an exposed screw head removed. No significant purulence noted by the surgeon on the operative report. However the exposed hardware would dictate infection and the need to likely treat as if osteomyelitis. The cultures are growing an Enterobacter which is resistant to 1st generation cephalosporins but sensitive to Levaquin. At this point would continue both cefazolin and Levaquin until cultures are final. There is a chance if everyone is in agreement that this Enterobacter is the only pathogen that we can continue treating with Levaquin monotherapy. Agree that the duration should likely be 6 weeks. Plan: 1. Continue both cefazolin and Levaquin. 2. Follow for an allergy of cultures. 3. Discuss implication of enterobacter isolation on culture as reflecting the sole pathogen. Subjective: Patient is resting comfortably in his hospital bed. He has no particular complaint. Left leg is somewhat sore still. No fevers. Objective: Cefazolin #2 Levaquin #2 Vital Signs Temp Pulse Resp BP Pulse Ox 36.6 C 88 15 147/94 H 97 05/02/16 15:54 05/02/16 15:54 05/02/16 15:54 05/02/16 15:54 05/02/16 15:54 Microbiology 04/30/16 11:40 Gram Stain - Final Thigh - Anaerobic Tube/Swab Wound Culture - Final Enterobacter Cloacae Laboratory Results 05/01/16 05:12 05/02/16 05:31 05/01/16 05/02/16 05/03/16 05:59 05:59 05:59 Intake Total 2150 1620 Output Total 700 150 Balance 1450 1470 ESR 59 MM/HR (0-20) H 04/29/16 18:00 C-Reactive Protein 5.4 mg/L (<10.0) 04/29/16 18:00 - Physical Exam General Appearance: WD/WN, alert, no apparent distress Respiratory: lungs clear, normal breath sounds, No respiratory distress Cardiac/Chest: regular rate, rhythm, No tachycardia Skin: normal color, warm/dry, No rash Neuro/Psych: alert, normal mood/affect, oriented x 3 ICD10 Worksheet Patient Problems: Problems Problem Status Onset Infection of left knee Acute Chronic hepatitis Acute Femur fracture, left Acute Pancreatitis Acute
[2016-05-03] MEDS: oxyCODONE IR 5 MG TAB PO PRN ×5 (00:36→22:45)
[2016-05-03] MEDS: ceFAZolin 2 GM in D5W 100 ML IV SCH (05:15)
--- NOTE | 2016-05-03 09:21 | SOAPPROG ---
SOAP Progress Note Assessment/Plan: Assessment: S/P I&D / Revision ORIF L Distal femur fx Pain tolerable +U/O Mandi po intake Dressing intact, no D/C Distal NVI No pain with gentle ROM Plan: OOB/PT Knee CPM OK for D/C from ortho standpoint when medically stable and home care arranged 05/01/16 05:41 05/02/16 05:59 Pain improving Limited ambulation CPM well tolerated Dressing intact, No D/C NV unchanged Con't OOB/PT Dispo pending - agree with SNF placement 05/03/16 09:19 Pain tolerable OOB with PT Dressing intact. No D/C NV unchanged OK for D/C from ortho standpoint. F/U 1 wk Objective: Vital Signs Temp Pulse Resp BP Pulse Ox 36.9 C 86 14 177/97 H 96 05/03/16 07:28 05/03/16 07:28 05/03/16 07:28 05/03/16 07:28 05/03/16 07:28 Microbiology 04/30/16 11:40 Gram Stain - Final Thigh - Anaerobic Tube/Swab Wound Culture - Final Enterobacter Cloacae Laboratory Results 05/01/16 05:12 05/02/16 05:31 05/02/16 05/03/16 05/04/16 05:59 05:59 05:59 Intake Total 1620 400 Output Total 150 300 Balance 1470 100 PT 13.7 SEC (12.0-15.0) 04/30/16 10:06 INR 1.06 (0.83-1.16) 04/30/16 10:06 ICD10 Worksheet Patient Problems: Problems Problem Status Onset Infection of left knee Acute Chronic hepatitis Acute Femur fracture, left Acute Pancreatitis Acute
--- NOTE | 2016-05-03 09:46 | PCMIDPN ---
Assessment/Plan: Assessment/Plan: * Left lower extremity wound infection s/p ORIF with exposed hardware s/p debridement and removal of exposed screw: Operative findings reviewed with Dr. Nichols without deep purulence noted. Nonoperative culture with growth of Enterobacter cloacae is fluoroquinolone susceptible. Plan to treat with 6 weeks of oral levofloxacin given excellent oral bioavailability. Side effects of levofloxacin including potential for tendinopathy or C difficile colitis discussed with patient today. Will arrange for follow-up with Dr. Segura our office in 7-10 days. 05/03/16 09:43 Subjective: Patient without significant complaints other than some left knee pain. Objective: Vital Signs Temp Pulse Resp BP Pulse Ox 36.9 C 86 14 177/97 H 96 05/03/16 07:28 05/03/16 07:28 05/03/16 07:28 05/03/16 07:28 05/03/16 07:28 Microbiology 04/30/16 11:40 Gram Stain - Final Thigh - Anaerobic Tube/Swab Wound Culture - Final Enterobacter Cloacae Laboratory Results 05/01/16 05:12 05/02/16 05:31 05/02/16 05/03/16 05/04/16 05:59 05:59 05:59 Intake Total 1620 400 Output Total 150 300 Balance 1470 100 ESR 59 MM/HR (0-20) H 04/29/16 18:00 C-Reactive Protein 5.4 mg/L (<10.0) 04/29/16 18:00 Cefazolin # 4 Levofloxacin # 3 Leg cultures with growth of Enterobacter cloacae which is quinolone susceptible Blood cultures x2 no growth - Physical Exam General Appearance: alert, no apparent distress EENT: No scleral icterus, No thrush Cardiac/Chest: regular rate, rhythm Extremities: inflammation (Left lower extremity incision intact with small area of sanguinous drainage; no surrounding erythema with mild edema present; mildly tender to palpation) ICD10 Worksheet Patient Problems: Problems Problem Status Onset Infection of left knee Acute Chronic hepatitis Acute Femur fracture, left Acute Pancreatitis Acute
[2016-05-03] MEDS: SENNOSIDES/DOCUSATE SODIUM TAB PO SCH ×2 (10:07→22:44)
[2016-05-03] MEDS: MULTIVITAMINS 1 EACH TAB PO SCH (10:08)
[2016-05-03] MEDS: CALCIUM CARBONATE 500 MG TAB PO SCH (10:08)
[2016-05-03] MEDS: CHOLECALCIFEROL VIT D3 1,000 UNITS TAB PO SCH (10:09)
--- NOTE | 2016-05-03 11:16 | PDIAF ---
- Diagnosis Diagnosis: knee infection Code Status: Full Code - Medication Management Discharge Medications: Medications to Continue on Transfer Multivitamins [Multivitamin (*)] 1 each PO DAILY 04/10/16 [Last Taken 04/28/16] Polyethylene Glycol 3350 [Miralax 17 gm (*)] 17 gm PO DAILY #0 pkt 04/15/16 [ Last Taken 04/28/16] Sennosides/Docusate Sodium [Senokot-S] 1 - 2 tab PO BID #0 tab 04/15/16 [Last Taken 04/28/16] Calcium Carbonate [Oyster Shell Calcium 500 mg (*)] 1,000 mg PO DAILY 04/29/16 [ Last Taken 04/28/16] Cholecalciferol Vit D3 [Vitamin D3 (*)] 1,000 units PO DAILY 04/29/16 [Last Taken 04/28/16] Acetaminophen [Tylenol 325mg (*)] 650 mg PO Q4HRS PRN #0 tab 05/03/16 [Last Taken Unknown] Sennosides/Docusate Sodium [Senokot-S] 1 - 2 tab PO BID #0 tab 05/03/16 [Last Taken Unknown] levOFLOXACIN [levAQUIN (*)] 750 mg PO DAILY AT 10AM #42 tab 05/03/16 [Last Taken Unknown] oxyCODONE IR [Oxycodone Ir (*)] 5 - 10 mg PO Q4 PRN #20 tab 05/03/16 [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 PICC Care - Routine: N/A - Orders Services needed: Home Care, Registered Nurse, Physical Therapy, Occupational Therapy Home Care Face to Face: I certify that this patient was under my care and that I had the required [id number] encounter meeting the encounter requirements on the discharge day. My findings support the fact that the patient is homebound as defined in CMS Chapter 7 Medicare Benefits Manual 30.1.1, The condition of the patient is such that there exists a normal inability to leave home and consequently, leaving home would require a considerable and taxing effort. Wound Care Instructions: Keep dressing clean, dry, intact Sutures/Joellen Site: L medial knee - leave in place Activity/Weight Bearing Restrictions: WBAT in brace. Actice and Passive knee ROM - Follow Up Care Current Providers and Referrals: NONE *PRIMARY CARE P,. [Primary Care Provider] - As per Instructions Peter Segura MD [Medical Doctor] - 05/13/16 11:30 am
[2016-05-03] MEDS: POLYETHYLENE GLYCOL 3350 17 GM PKT PO SCH (12:40)
--- NOTE | 2016-05-03 16:15 | HOSPPROG ---
Hospitalist Progress Note Assessment/Plan: 70-year-old male admitted the hospital secondary to chronic wound infection. Hospitalist Progress Note Assessment/Plan: # L knee/femur with infected hardware and wound dehiscence - s/p ORIF with hardware [address] Nichols after fall/fracture - to [place] 04/[address] Nichols - cont antibiotics - ID consult -Enterobacter - possible osteomylitis # sepsis d/t above - no end organ damage # alcohol use -not withdrawing now, but follow closely # tobacco - declined nicotine patch # cachexia - reports being negative for HIV in past # severe protein calorie malnutrition - dietary c/s # htn - hold on tx today # FCFT # ppx - SCDs - needs lovenox post-op # hyperCa - Resolved # disposition - unclear at this time patient wishes to go home. Requires continued antibiotic therapy with po levaquin PT rec SNF, pt agrees to go to [facility] Will DC in am to SNF Subjective: Feeling better. Still dizzy when getting out of bed. Still having some pain. Objective: Vital Signs Temp Pulse Resp BP Pulse Ox 36.9 C 86 14 162/93 H 96 05/03/16 07:28 05/03/16 07:28 05/03/16 07:28 05/03/16 08:00 05/03/16 07:28 Microbiology 04/30/16 11:40 Gram Stain - Final Thigh - Anaerobic Tube/Swab Wound Culture - Final Enterobacter Cloacae Laboratory Results 05/01/16 05:12 05/02/16 05:31 05/02/16 05/03/16 05/04/16 05:59 05:59 05:59 Intake Total 1620 400 Output Total 150 300 Balance 1470 100 PT 13.7 SEC (12.0-15.0) 04/30/16 10:06 INR 1.06 (0.83-1.16) 04/30/16 10:06 - Physical Exam Constitutional: appears nourished, chronically ill appearing Eyes: PERRL, anicteric sclera, EOMI Ears, Nose, Mouth, Throat: moist mucous membranes, hearing normal Cardiovascular: No JVD, No edema Respiratory: no respiratory distress, reduced air movement Gastrointestinal: No tenderness, No ascites Skin: warm, normal color Musculoskeletal: abnormal gait, generalized weakness Neurologic: AAOx3 Psychiatric: not anxious, poor insight, poor judgement ICD10 Worksheet Patient Problems: Problems Problem Status Onset Pancreatitis Acute Chronic hepatitis Acute Femur fracture, left Acute Infection of left knee Acute
[2016-05-03 23:06] VITALS: BP 161/98; RESP 17
[2016-05-04] MEDS: oxyCODONE IR 5 MG TAB PO PRN ×2 (05:16→12:13)
[2016-05-04 05:38] LABS: ANION GAP 10 mEq/L (8-16); CALCIUM 9.9 mg/dL (8.5-10.4); CARBON DIOXIDE 24 mEq/l (22-31); CHLORIDE 94 mEq/L (97-110); CREATININE 0.7 mg/dL (0.7-1.3); GLOMERULAR FILTRATION RATE > 60; GLUCOSE 88 mg/dL (70-100); POTASSIUM 3.8 mEq/L (3.5-5.2); SODIUM 128 mEq/L (134-144)
[2016-05-04 05:55] VITALS: PULSE 78; TEMP 98.1; O2SAT 93
--- NOTE | 2016-05-04 10:03 | PDIAF ---
- Diagnosis Diagnosis: knee infection Code Status: Full Code - Medication Management Discharge Medications: Medications to Continue on Transfer Multivitamins [Multivitamin (*)] 1 each PO DAILY 04/10/16 [Last Taken 04/28/16] Polyethylene Glycol 3350 [Miralax 17 gm (*)] 17 gm PO DAILY #0 pkt 04/15/16 [ Last Taken 04/28/16] Sennosides/Docusate Sodium [Senokot-S] 1 - 2 tab PO BID #0 tab 04/15/16 [Last Taken 04/28/16] Calcium Carbonate [Oyster Shell Calcium 500 mg (*)] 1,000 mg PO DAILY 04/29/16 [ Last Taken 04/28/16] Cholecalciferol Vit D3 [Vitamin D3 (*)] 1,000 units PO DAILY 04/29/16 [Last Taken 04/28/16] Acetaminophen [Tylenol 325mg (*)] 650 mg PO Q4HRS PRN #0 tab 05/03/16 [Last Taken Unknown] Sennosides/Docusate Sodium [Senokot-S] 1 - 2 tab PO BID #0 tab 05/03/16 [Last Taken Unknown] levOFLOXACIN [levAQUIN (*)] 750 mg PO DAILY AT 10AM #42 tab 05/03/16 [Last Taken Unknown] oxyCODONE IR [Oxycodone Ir (*)] 5 - 10 mg PO Q4 PRN #20 tab 05/03/16 [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 PICC Care - Routine: N/A - Orders Services needed: Registered Nurse, Physical Therapy, Occupational Therapy Wound Care Instructions: Keep dressing clean, dry, intact Sutures/Joellen Site: L medial knee - leave in place Activity/Weight Bearing Restrictions: WBAT in brace. Actice and Passive knee ROM - Follow Up Care Current Providers and Referrals: NONE *PRIMARY CARE P,. [Primary Care Provider] - As per Instructions Peter Segura MD [Medical Doctor] - 05/13/16 11:30 am
[2016-05-04] MEDS: CALCIUM CARBONATE 500 MG TAB PO SCH (10:20)
[2016-05-04] MEDS: CHOLECALCIFEROL VIT D3 1,000 UNITS TAB PO SCH (10:20)
[2016-05-04] MEDS: MULTIVITAMINS 1 EACH TAB PO SCH (10:20)
[2016-05-04] MEDS: SENNOSIDES/DOCUSATE SODIUM TAB PO SCH (10:21)
[2016-05-04] MEDS: POLYETHYLENE GLYCOL 3350 17 GM PKT PO SCH (10:27)
--- NOTE | 2016-05-04 20:00 | GDS ---
[f rep st] DISCHARGE SUMMARY DISCHARGE DIAGNOSES: 1. Left knee infected hardware and wound dehisce. 2. Sepsis. 3. Chronic alcohol use. 4. Tobacco. 5. Cachexia. 6. Severe protein calorie malnutrition. 7. Hypertension. 8. Failure to thrive. CONSULTATIONS: 1. Dr. Nichols of Orthopedics. 2. Infectious Disease. PHYSICAL EXAMINATION: GENERAL: The patient is alert. VITAL SIGNS: Afebrile at 36.6, pulse is 112 , respiratory rate 17, blood pressure is 161/98. He is saturating 95% on room air. I have seen and evaluated the patient on the day of discharge. HOSPITAL COURSE: 1. The patient is a 70-year-old male who presented to the hospital with complaints of chronic left knee wound infection. He was evaluated and diagnosed with left knee infected hardware and chronic i nfection. During this hospitalization the patient was taken to the operating room by Dr. Nichols. H e has been placed on antibiotic therapy and will continue antibiotic therapy for an extended amount of time in the outpatient setting. He will need continued wound care as well as ongoing orthopedic evaluation. 2. Sepsis: This is secondary to the patient's infection and has resolved. 3. Alcohol use: No signs of withdrawal and is stable. 4. Tobacco use: The patient is declining cessation. 5. Cachexia: He is at his baseline. 6. Severe protein calorie malnutrition: He received a dietary consult. DISPOSITION: The patient will be discharged to [facility] for further evaluation and management and rehabilitation. He is noted to have chronic hyponatremia which is stable at the time of dispositio n. During this hospitalization microbiology demonstrates Enterobacter which is being treated with L evaquin. He will continue Levaquin for at least a minimum of 6 weeks and will follow up in the [facility] with Dr. Segura of Infectious Disease in 7-10 days. There are no pending studies. Followup will be with Dr. Nichols as well as Dr. Segura of Infectious Disease on 05/13/2016 at 11:30 in the a.m. Again he will continue his Levaquin 750 mg daily. DISCHARGE MEDICATIONS: Please refer to EMR form. I spent greater than 35 minutes in the care, coordination, and management of this patient's disposit ion. /[id number]/MODL
== END 2016-05-04 13:26 | DRG 901 ==
LOC: F3E 04-30 08:14 → F3N 04-30 14:42
PROVIDERS: ADMIT Internal Medicine; ATTEND Internal Medicine
PROC: 0QWC04Z Revision of Internal Fixation Device in Left Lower Femur, Open Approach (ICD-10-PCS; principal; 2016-04-30 13:00)
PROC: 0QPC04Z Removal of Internal Fixation Device from Left Lower Femur, Open Approach (ICD-10-PCS; principal; 2016-04-30 13:00)
PROC: 0JDM0ZZ Extraction of Left Upper Leg Subcutaneous Tissue and Fascia, Open Approach (ICD-10-PCS; principal; 2016-04-30 13:00)
PROC: 0JBM0ZZ Excision of Left Upper Leg Subcutaneous Tissue and Fascia, Open Approach (ICD-10-PCS; principal; 2016-04-30 13:00)
DX: T81.31XA Disruption of external operation (surgical) wound, not elsewhere classified, initial encounter (principal); T84.621A Infection and inflammatory reaction due to internal fixation device of left femur, initial encounter; A41.50 Gram-negative sepsis, unspecified; M86.152 Other acute osteomyelitis, left femur; T84.115A Breakdown (mechanical) of internal fixation device of left femur, initial encounter; S72.432A Displaced fracture of medial condyle of left femur, initial encounter for closed fracture; E43 Unspecified severe protein-calorie malnutrition; E87.1 Hypo-osmolality and hyponatremia; E83.52 Hypercalcemia; F10.10 Alcohol abuse, uncomplicated; F17.210 Nicotine dependence, cigarettes, uncomplicated; F12.10 Cannabis abuse, uncomplicated; I10 Essential (primary) hypertension; B18.2 Chronic viral hepatitis C
CPT/HCPCS: 96365; 97116-GP; 97163-GP; 97165-GO; 97530-GP; 97535-GO; C1713; G8978-GP-CK; G8979-GP-CI; G8979-GP-CK; G8981-GP-CI; G8987-GO-CK; G8988-GO-CI; J0690; J1170; J2250; J2405; J2704; J3010; J3490; L1832